=== PATIENT | female | born 1965 | race Caucasian/White ===

== ENCOUNTER → 2020-05-24 08:02 | Outpatient (CLI) | payer OTHER, SELFPAY ==
--- NOTE | ~2020-05-24 | MM_ITS ---
EXAMINATION: MM screening zane [facility] w [place] HISTORY: Screening TECHNIQUE: Craniocaudal and mediolateral oblique 3-D tomosynthesis images were obtained and synthetic 2-D images were generated. CAD analysis was submitted and interpreted. COMPARISON: No prior mammogram is available for comparison at this institution. BREAST PARENCHYMAL COMPOSITION: There are scattered areas of fibroglandular density. FINDINGS: There is no evidence of suspicious mass, calcification, or architectural distortion to sugg est malignancy in either breast. There has been no suspicious interval change. IMPRESSION: 1. No mammographic evidence of malignancy. 2. Recommend routine screening mammography in one year. BI-RADS Category 1: Negative Reviewed, dictated and finalized at location A. OR PRODUCT DESIGNER
== END ==
PROVIDERS: PCP Internal Medicine; Visit Provider Obstetrics & Gynecology
DX: Z12.31 Encounter for screening mammogram for malignant neoplasm of breast (principal)
CPT/HCPCS: 77063; 77067

== ENCOUNTER 2021-12-02 07:45 | Outpatient (CLI) | payer OTHER, SELFPAY ==
--- NOTE | ~2021-12-02 | XR_ITS ---
XR shoulder LT min 2V DATE: 12/02/2021 08:04 INDICATION: Left shoulder pain TECHNIQUE: 4 views COMPARISON: None FINDINGS: Status post anterior cervical spine surgical fusion. Osteopenia. No fracture or dislocation, periosteal reaction or bone destruction of the left shoulder. Normal alig nment and preservation of joint spaces at the acromioclavicular and glenohumeral joints of the left s houlder. No abnormal left shoulder soft tissue calcification. IMPRESSION: Negative left shoulder Status post anterior cervical spine surgical fusion Reviewed, dictated and finalized at location B.
== END 2021-12-02 07:46 ==
LOC: MICIMG 07:46
PROVIDERS: PCP Internal Medicine; Visit Provider Internal Medicine
DX: M25.512 Pain in left shoulder (principal); Z98.1 Arthrodesis status
CPT/HCPCS: 73030

== ENCOUNTER 2023-09-17 03:55 | Day surgery (SDC) | payer BC, SELFPAY ==
[2023-08-22 15:53] VITALS: BMI 30.2
--- NOTE | 2023-09-14 12:14 | SUR.PREOP ---
Patient called regarding upcoming procedure. Reviewed preop instructions, appointment times, and procedure prep.
[2023-09-17 07:50] VITALS: BP 96/66; PULSE 95; RESP 18; TEMP 36.1; O2SAT 97
[2023-09-17] MEDS: LACTATED RINGERS 1,000 ML 150 ML IV CONT (08:05)
[2023-09-17 08:07] LABS: Glucose Point of Care 93 mg/dl (65-105)
--- NOTE | 2023-09-17 08:08 | WPDANESEPPF ---
Anes - Initial Pre Proc Eval Procedure: Operation Date: 09/17/23 09:00 Proposed Procedures p Screening Colonoscopy - Berry Rojas MD Date/Time: 09/17/23 08:08 Surgeon: Berry Rojas MD Pre Op Diagnosis: neoplasm screening Patient Data Age: 58 Gender: F Height: 1.73 m Weight: 88.4 kg Last Vital Signs Temp 36.1 C L 09/17/23 07:50 Pulse 95 09/17/23 07:50 Resp 18 09/17/23 07:50 BP 96/66 L 09/17/23 07:50 Pulse Ox 97 09/17/23 07:50 O2 Del Method Room Air 09/17/23 07:50 Allergies Allergy/AdvReac Type Severity Reaction Status Date / Time No Known Allergies Allergy Verified 09/17/23 07:44 Home Medications Medication Instructions Recorded Confirmed Type calcium carbonate 500 mg calcium 500 mg PO DAILY 12/07/20 08/22/23 History (1,250 mg) tablet (Calcium 500) omega 6-ahy-gmb-fish oil 1,000 mg 3 cap PO DAILY 12/07/20 08/22/23 History (120 mg-180 mg) capsule (Fish Oil) tramadol 50 mg tablet 50 mg PO Q4H PRN pain #180 tabs 01/12/23 08/22/23 Rx tirzepatide 15 mg/0.5 mL 15 mg (0.5 mL) subcut WEEKLY #2 mL 05/28/23 08/22/23 Rx subcutaneous pen injector (Mounjaro) valsartan 320 See Rx Instructions .Route 06/07/23 08/22/23 Rx mg-hydrochlorothiazide 12.5 mg .COMPLEX #90 tabs tablet levothyroxine 88 mcg tablet See Rx Instructions .Route 08/30/23 Rx .COMPLEX #90 tabs ibuprofen 800 mg tablet 800 mg PO TID PRN pain #90 tabs 08/31/23 Rx pravastatin 80 mg tablet See Rx Instructions .Route 08/31/23 Rx .COMPLEX #90 tabs Laboratory Tests 09/17/23 08:02 POC Capillary Glucose 93 mg/dl (65-105) Patient hx anesthesia problems: none Family hx anesthesia problems: none Results Review: All pre-operative results and documents have been reviewed as part of the pre-operative evaluation. [facility] Past Medical History Medical History (Updated 09/17/23 @ 08:08 by Eliezer Arroyo MD) BMI 36.0-36.9,adult COVID-19 Hypothyroidism Nicotine abuse Screening mammogram, encounter for Type II diabetes mellitus Surgical History Surgical History History of abdominal hysterectomy (~2002) laparoscopic abdominal hysterectomy--abnormal uterine bleeding History of appendectomy History of (11/23/90) History of cervical discectomy (~05/2015) History of orthopedic surgery (~05/2016) neck fusion Social History Social History Smoking packs per day: 0.5 Smoking cigarettes per day: 10.0 Years smoked: 40 Smoking pack-years: 20.00 Smoking status: Current every day smoker Tobacco type: cigarettes Second hand tobacco smoke exposure: Yes Alcohol intake: current Drinks per week: 5 Substance use: never Substance use type: does not use Lack of Transportation: No Lack of Food: Never True Current Housing: I Have Housing Concerned About Future Housing: No Difficulty Paying Gas/Electric Bills: No Difficulty Paying for Meds: No Currently Unemployed: No Education: Associate Degree Difficulty w/ Childcare or Family Care: No Living arrangements: with family Additional living arrangements comments: Occupation/Education: occupation 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
--- NOTE | 2023-09-17 08:39 | PM.HPGS ---
History of Present Illness History of Present Illness Consent: Risks, benefits, and alternatives have been discussed and questions answered. Patient agrees to proceed with procedure. Chief complaint: neoplasm screening Narrative: Maye Riley is a 58 year old female here for first screening colonoscopy Review of Systems Constitutional: Constitutional: Denies headache(s) and Denies weakness Eyes: Eyes: Denies blurry vision ENT: Reports Normal hearing present, Denies headache(s) and Denies neck pain Cardiovascular: Cardiovascular: Denies chest pain and Denies dyspnea Respiratory: Respiratory: Denies dyspnea Gastrointestinal: Gastrointestinal: Reports no additional gastrointestinal complaints Genitourinary: Genitourinary: Denies dysuria Musculoskeletal: Musculoskeletal: Denies neck pain Integumentary/Breasts: Skin/Breast: Denies dry skin Neurologic: Reports Normal hearing present, Denies headache(s) and Denies weakness Psychiatric: Psychiatric: Denies anxiety Endocrine: Endocrine: Denies change in body appearance Hematologic/Lymphatic: Hematologic/Lymphatic: Denies easy bleeding Allergic/Immunologic: Allergic/Immunologic: Denies urticaria PMFSH Past Medical History Medical History (Updated 09/17/23 @ 08:08 by Eliezer Arroyo MD) BMI 36.0-36.9,adult COVID-19 Hypothyroidism Nicotine abuse Screening mammogram, encounter for Type II diabetes mellitus Surgical History Surgical History History of abdominal hysterectomy (~2002) laparoscopic abdominal hysterectomy--abnormal uterine bleeding History of appendectomy History of (11/23/90) History of cervical discectomy (~05/2015) History of orthopedic surgery (~05/2016) neck fusion Social History Social History Smoking packs per day: 0.5 Smoking cigarettes per day: 10.0 Years smoked: 40 Smoking pack-years: 20.00 Smoking status: Current every day smoker Tobacco type: cigarettes Second hand tobacco smoke exposure: Yes Alcohol intake: current Drinks per week: 5 Substance use: never Substance use type: does not use Lack of Transportation: No Lack of Food: Never True Current Housing: I Have Housing Concerned About Future Housing: No Difficulty Paying Gas/Electric Bills: No Difficulty Paying for Meds: No Currently Unemployed: No Education: Associate Degree Difficulty w/ Childcare or Family Care: No Living arrangements: with family Additional living arrangements comments: Occupation/Education: occupation 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 Gender identity (if verbalized by the patient): Female Sexual Orientation (if Verbalized by the Patient): Straight or Heterosexual Spiritual care concerns: No Meds Home Medications and Allergies Home Medications Medication Instructions Recorded Confirmed Type calcium carbonate 500 mg calcium 500 mg PO DAILY 12/07/20 08/22/23 History (1,250 mg) tablet (Calcium 500) omega 6-stm-lbw-fish oil 1,000 mg 3 cap PO DAILY 12/07/20 08/22/23 History (120 mg-180 mg) capsule (Fish Oil) tramadol 50 mg tablet 50 mg PO Q4H PRN pain #180 tabs 01/12/23 08/22/23 Rx tirzepatide 15 mg/0.5 mL 15 mg (0.5 mL) subcut WEEKLY #2 mL 05/28/23 08/22/23 Rx subcutaneous pen injector (Asaunjake) valsartan 320 See Rx Instructions .Route 06/07/23 08/22/23 Rx mg-hydrochlorothiazide 12.5 mg .COMPLEX #90 tabs tablet levothyroxine 88 mcg tablet See Rx Instructions .Route 08/30/23 Rx .COMPLEX #90 tabs ibuprofen 800 mg tablet 800 mg PO TID PRN pain #90 tabs 08/31/23 Rx pravastatin 80 mg tablet See Rx Instructions .Route 08/31/23 Rx .COMPLEX #90 tabs Allergies Allergy/AdvReac Type Severity Reaction Status Date / Time No Known Allergies Allergy Verified 09/17/23 07:44 Vital Signs Vital Signs - 24 hr
[2023-09-17 08:58] VITALS: BP 73/48; PULSE 81; RESP 20; O2SAT 98
[2023-09-17 09:08] VITALS: BP 79/46; PULSE 81; RESP 30; O2SAT 97
[2023-09-17 09:18] VITALS: BP 78/47; PULSE 71; RESP 18; O2SAT 100
[2023-09-17 09:49] VITALS: BP 90/59
== END 2023-09-17 09:50 | disposition home or self-care (01) ==
PROVIDERS: PCP Nurse Practitioner; Visit Provider Internal Medicine Gastroenterology
PROC: 0DJD8ZZ Inspection of Lower Intestinal Tract, Via Natural or Artificial Opening Endoscopic (ICD-10-PCS; CPT 45378; principal; 2023-09-17 09:00)
DX: Z12.11 Encounter for screening for malignant neoplasm of colon (principal); D12.4 Benign neoplasm of descending colon; K64.8 Other hemorrhoids; E03.9 Hypothyroidism, unspecified; E11.9 Type 2 diabetes mellitus without complications; F17.210 Nicotine dependence, cigarettes, uncomplicated; Z79.891 Long term (current) use of opiate analgesic; Z98.890 Other specified postprocedural states; Z98.1 Arthrodesis status
CPT/HCPCS: 45385; 82948; 88305; J2704; J7120

== ENCOUNTER 2025-01-02 17:49 | Emergency (ER) | payer OTHER, BC, SELFPAY ==
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
[2025-01-02 17:50] VITALS: BP 140/91; PULSE 104; RESP 18; TEMP 36.9; O2SAT 99
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
[2025-01-02 18:29] LABS: Basophils Percent Auto 0.2 % (0.2-1.2); Eosinophils Percent Auto 0.3 % (0-4.4); Hematocrit 39.4 % (37.0-47.0); Hemoglobin 13.1 g/dL (12.0-15.0); Immature Granulocyte Absolute 0.15 K/mm3 (0.00-0.031); Immature Granulocyte Percent A 1.3 % (0-0.5); Lymphocytes Absolute Auto 2.88 K/mm3 (0.9-3.2); Lymphocytes Percent Auto 25.7 % (18.3-44.2); Mean Corpuscular HGB Conc 33.2 g/dl (32-36); Mean Corpuscular Hemoglobin 30.5 pg (26-34); Mean Corpuscular Volume 91.8 fl (80-100); Mean Platelet Volume 9.4 fl (7.4-10.4); Monocytes Absolute Auto 0.8 K/mm3 (0.1-0.6); Monocytes Percent Auto 7.2 % (2.6-8.5); Neutrophils Absolute Auto 7.3 K/mm3 (1.3-6.7); Neutrophils Percent Auto 65.3 % (45.5-73.1); Platelet Count Result 370 k/mm3 (150-375); Red Blood Count 4.29 M/mm3 (4.2-5.4); Red Cell Distribution Width 12.5 % (11.5-14.5); White Blood Count 11.2 K/mm3 (4.5-10.0)
[2025-01-02 18:40] LABS: Prothrombin Time 13.2 Seconds (11.1-14.7)
[2025-01-02 18:41] LABS: Partial Thromboplastin Time 23.7 Seconds (22.3-36.8)
[2025-01-02 18:42] LABS: Alanine Aminotransferase 24 U/L (6-35); Albumin Level 4.4 g/dL (3.5-5.1); Alkaline Phosphatase 55 U/L (38-126); Anion Gap 10 mmol/L (4-12); Aspartate Amino Transferase 31 U/L (14-36); Bilirubin,Total 0.4 mg/dL (0.2-1.3); Blood Urea Nitrogen 13 mg/dL (7-17); Calcium 9.6 mg/dL (8.4-10.2); Carbon Dioxide 21 mmol/L (22-30); Chloride 104 mmol/L (98-107); Estimated CRCL calculation 85 ml/min; Estimated Glomerular Filt Rate > 60; Glucose 117 mg/dL (65-110); Potassium 3.6 mmol/L (3.4-5.0); Sodium 135 mmol/L (137-145)
[2025-01-02] MEDS: ONDANSETRON INJ 4 MG/2 ML VIAL IV PUSH (18:42)
[2025-01-02] MEDS: MORPHINE SULFATE (*CRX) 4 MG/ML INJ IV PUSH (18:42)
--- OUTSIDE RECORDS SUMMARY | 2025-01-02 19:40 | XMS_ITS | Clinical Summary ---
Author Organization [facility] Address [address] [place] [id number] Phone Care Team Providers Care Office Equipment Technician Name Role Phone Gerard Vale MD Primary Care Provider [phone] Allergies No known active allergies Medications LOSARTAN POTASSIUM PO Take by mouth. Active LEVOTHYROXINE SODIUM PO Take by mouth. Active POTASSIUM CHLORIDE PO Take by mouth. Active Dapagliflozin-Me tformin HCl ER (XIGDUO XR) 5-1000 MG TABLET SR 24 HR Take by mouth. Active Cetirizine HCl (ZYRTEC PO) Take by mouth. Active RaNITidine HCl (ZANTAC PO) Take by mouth. Active Montelukast Sodium (SINGULAIR PO) Take by mouth. Active [place]-3 Fatty Acids (FISH OIL PO) Take by mouth. Active Social History Tobacco Use Types Packs/Day Years Used Date Smoking Tobacco: Every Day Cigarettes Smokeless Tobacco: Never Alcohol Use Standard Drinks/Week Comments Yes 0 (1 standard drink = 0.6 oz pur e alcohol) Comments No Sex and Gender Information Value Date Recorded Sex Assigned at Not on file Legal Sex Female 7:46 PM CDT Gender Identity Not on file Sexual Orientation Not on file Last Filed Vital Signs Vital Sign Reading Time Taken Comments Blood Pressure 122/86 04/26/2018 10:28 AM CDT Pulse 89 04/26/2018 10:28 AM CDT Temperature 36.7 C (98 F) 04/26/2018 10:28 AM CDT Respiratory Rate 16 04/26/2018 10:28 AM CDT Oxygen Saturation 96% 04/26/2018 10:28 AM CDT Inhaled Oxygen Concentration - - Weight 108.4 kg (239 lb) 04/26/2018 10:28 AM CDT Height - - Body Mass Index - - Plan of Treatment Health Maintenance Due Date Last Done Comments Hepatitis C Virus (HCV) Screening 1967 TdaP Immunization 1967 Hepatitis B Immunization (1 of 3 - 19+ 3-dose series) 1986 Pap Smear 1988 Cervical Cancer Screening (CCS) 1997 HPV/Cotest 1997 Colonoscopy 2012 Colorectal Cancer Screening 2012 Cologuard 2017 Immunochemical Fecal Occult Blood 2017 Mammogram 2017 Pneumococcal Immunization (50+ years) (1 of 1 - PCV) 2017 Zoster Immunization (1 of 2) 2017 Influenza Immunization (#1) 2024 11/0 07/2015, 05/13/2015, 05/14/2013, Additional history exists SARS-COV-2 Immunization ( season) 2024 05/17/2021, 09/28/2020 Respiratory Syncytial Virus (RSV) Immunization (Adult) (1 - 1-dose 75+ series) 2042 Meningococcal Immunization (ACWY) Aged Out No longer eligible based on patient's age to complete this topic Pneumococcal Immunization Combined Aged Out No longer eligible based on patient's age to complete this topic Rotavirus Immunization Aged Out No lo nger eligible based on patient's age to complete this topic [place] [address] [place] [address] Care Teams Office Equipment Technician Relationship Specialty Start Date End Date Gerard Vale MD PCP - General Internal Medicine 04/26/18
--- OUTSIDE RECORDS SUMMARY | 2025-01-02 19:40 | XMS_ITS | Encounter Summary ---
Author Organization [facility] Address [address] [facility] [address] [place] [address] Phone Care Team Providers Care Bootmaker Hand Name Role Phone Jose Foote MD Unavailable [phone] Rex Parra NP Primary Care Provider [phone] Shawn Moncada MD Unavailable [phone] Irma Covarrubias MD Unavailable [phone] Ethan Isidro DO Unavailable [phone] Encounter Details Date Type Department Care Team (Late st Contact Info) Description 01/01/2025 9:45 AM CDT Office Visit [facility] Surgery [address] [facility] Advanced Medicine 6th [place] [address] [place] [address] Sissy Stovall MD [address] [facility] [phone] [place] [address] Ductal carcinoma in situ (DCIS) of right breast (Primary Dx) Social History Tobacco Use Types Packs/Day Years Used Date Smoking Tobacco: Former Cigarettes 0.5 43.3 1 982 - 11/13/2024 Passive Smoke Exposure: Never Smokeless Tobacco: Never AUDIT-C Answer Date Recorded Q1: How often do you have a drink containing alc ohol? 2-4 times a month 12/12/2024 Q2: How many drinks containi ng alcohol do you have on a typical day when you are drinking? 3 or 4 12/12/2024 Q3: How often do you have si x or more drinks on one occasion? Never 12/12/2024 Personal Safety Answer Date Recorded Have you ever been in or are you currently in a harmful physical or emotional relationship or is someone making you feel afraid or unsafe? 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 She is approximately three weeks post-operative following the removal of expanders and placement ofbreast implants. She has developed hives on her side, described as bumps, and has an upcoming appointment with her enamel drier to address this issue. She has been taking a steroid, which has helped reduce the hives. The surgical site is healing, with some bruising and dry skin noted. She has not smoked since the surgery, which she believes has positively impacted her healing process. Physical Examination: Physical Exam SKIN: Hives present on the side. Excision site healing well. Assessment/Plan: She is healing well. The patient is a good candidate for bilateral breast revision, bilateral implant exchange with bigger size, bilateral autologous fat grafting to the breasts. (patient preferred to do the liposuction for that from the back/ sides of the breasts). We tried to schedule that at least for months from today to allow the mastectomy skin enough time of healing. Patient have stopped smoking in very excited to continue that. Assessment & Plan Post-surgical breast reconstruction Healing well with normal excision site and expected bruising. Smoking cessation improved healing. - Schedule revision surgery for implant size increase and possible liposuction and fat grafting in 3-4 months. - Advise gentle cleansing with soap and water, pat dry, and apply Vaseline to dry areas. - Encourage continued smoking cessation to aid healing. Hives Intermittent hives possibly due to allergic reaction. Steroids effectively reducing hives. - Continue steroid treatment as needed for hives. - Follow up with enamel drier on Sunday for further evaluation. I have reviewed and edited the entirety of the note to reflect my history, exam, and decision making. Cheryl Stovall MD, PhD, [facility] doctor of naprapathic medicine Division of Plastic & Reconstructive Surgery [facility] in [facility] documented in this encounter Plan of Treatment Not on file documented as of this encounter Visit Diagnoses Diagnosis Ductal carcinoma in situ (DCIS) of right breast- Primary documented in this encounter Care Teams Bootmaker Hand Relationship Specialty Start Date End Date Rex Parra NP [address] [facility] 1 [facility] 1 [place] [address] PCP - General Nurse Practitioner 05/30/24 Jose Foote MD [address] [place] [address] Referring Physician Obstetrics and Gynecology 05/13/24 Shawn Moncada MD [address] [facility] 330 [place] [address] Consulting Physician General Surgery 07/09/24 Irma Covarrubias MD [address] [facility] 160 [place], [place] [phone] Radiation Oncologist Radiation Oncology 07/09/24 Ethan Isidro DO [address] [facility] 180 [place], [place] [id number] Medical Oncologist/Hematologis t Hematology and Oncology 07/21/24 documented as of this encounter
--- OUTSIDE RECORDS SUMMARY | 2025-01-02 19:40 | XMS_ITS | Encounter Summary ---
Author Organization [facility] Address [address] [place] [address] Phone Care Team Providers Care Scientific Programmer Name Role Phone Jose Foote MD Unavailable [phone] Rex Parra NP Primary Care Provider [phone] Shawn Moncada MD Unavailable [phone] Irma Covarrubias MD Unavailable [phone] Ethan Isidro DO Unavailable [phone] Encounter Details Date Type Department Care Team (Late st Contact Info) Description 11/19/2024 Results Follow-Up [facility]0 [facility] Floor [address] [place] [address] Nicolette Hebert MD PhD [address] [facility] [phone] [place] [address] Surgical pathology Social History Tobacco Use Types Packs/Day Years Used Date Smoking Tobacco: Every Day Cigarettes 0.5 43.4 Started: 1979 Smokeless Tobacco: Never AUDIT-C Answer Date Recorded Q1: How often do you have a drink containing alc ohol? 2-3 times a week 11/14/2024 Q2: How many drinks containi ng alcohol do you have on a typical day when you are drinking? 1 or 2 11/14/2024 Q3: How often do you have si x or more drinks on one occasion? Never 11/14/2024 Personal Safety Answer Date Recorded Have you ever been in or are you currently in a harmful physical or emotional relationship or is someone making you feel afraid or unsafe? 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 Gender Identity Not on file Sexual Orientation Not on file Occupation Industry Job Start Date Job End Date [employer] Not on file Not on file Not on file documented as of this encounter Plan of Treatment Not on file documented as of this encounter Visit Diagnoses Not on filedocumented in this encounter Care Teams Scientific Programmer Relationship Specialty Start Date End Date Rex Parra, ANGELICA [address] [place] [address] PCP - General Nurse Practitioner 05/30/24 Jose Foote MD [address] [place], [place] [phone] Referring Physician Obstetrics and Gynecology 05/13/24 Shawn Moncada MD [address] [facility] 330 [place] [address] Consulting Physician General Surgery 07/09/24 Irma Covarrubias MD [address] [facility] 160 [place], [place] [phone] Radiation Oncologist Radiation Oncology 07/09/24 Ethan Isidro DO [address] [facility] 180 [place], [place] [phone] Medical Oncologist/Hematologis t Hematology and Oncology 07/21/24 documented as of this encounter
--- OUTSIDE RECORDS SUMMARY | 2025-01-02 19:41 | XMS_ITS | Encounter Summary ---
Author Organization [facility] Healthcare Address [address] [place] [address] Care Team Providers Care Bonbon Cream Warmer Name Role Phone Jose Fotoe MD Unavailable [phone] Rex Parra NP Primary Care Provider [phone] Shawn Moncada MD Unavailable [phone] Irma Covarrubias MD Unavailable [phone] Ethan Isidro DO Unavailable [phone] Encounter Details Date Type Department Care Team (Late st Contact Info) Description 08/22/[address] [facility] Surgeon 1 [place] [address] Brooklynn Newman Social History Tobacco Use Types Packs/Day Years Used Date Smoking Tobacco: Every Day Cigarettes 0.5 43.4 Started: 1979 Smokeless Tobacco: Never AUDIT-C Answer Date Recorded Q1: How often do you have a drink containing alc ohol? 2-4 times a month 08/04/2024 Q2: How many drinks containi ng alcohol do you have on a typical day when you are drinking? 1 or 2 08/04/2024 Q3: How often do you have si x or more drinks on one occasion? 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 file Not on file Not on file documented as of this encounter Plan of Treatment Not on file documented as of this encounter Visit Diagnoses Not on filedocumented in this encounter Care Teams Bonbon Cream Warmer Relationship Specialty Start Date End Date Rex Parra NP [address] [facility] [address] [place] [address] PCP - General Nurse Practitioner 05/30/24 Jose Foote MD [address] [place] [address] Referring Physician Obstetrics and Gynecology 05/13/24 Shawn Moncada MD [address] [facility] 330 [place] [address] Consulting Physician General Surgery 07/09/24 Irma Covarrubias MD [address] [facility] 160 [place] [address] Radiation Oncologist Radiation Oncology 07/09/24 Ethan Isidro DO [address] [facility] 180 [place] [address] Medical Oncologist/Hematologis t Hematology and Oncology 07/21/24 documented as of this encounter
--- OUTSIDE RECORDS SUMMARY | 2025-01-02 19:41 | XMS_ITS ---
Author Organization [facility] [place] ([address]) Address [address] [place] [address] Care Team Providers Care Diagram Clerk Name Role Phone Stefano Andersen Primary Care Provider UnavailFox Trejo Unavailable [phone] Gerard Vale Unavailable Unavailable Williams Duong Unavailable [phone] REASON FOR VISIT Hives follow-up Social History Sex Assigned At : Social History Observation Description Sex Assigned At Female Encounters Encounter Location Date Provider Diagnosis [facility] [address] [place] [address] 12/03/2023 Williams Duong Plan Of Treatment Next Appt Details Provider Name:Jailyn sterling, 01/05/2025 07:30:00 AM, [address] [facility] [address], [place], [address], Progress Notes * Maye RILEY ADOB:1964 (59 yo F)Acc No.[id number]:12/03/2023 Progress Notes Patient: Nasreen Maye ROHT Provider: Anne Duong PA-C :1965 A ge:58 Y S ex:Female Date:12/03/2023 Address:[address] [place], [place] [address] Pcp:Stefano Ganesh Subjective: * Chief Complaints: * 1 . Hives follow-up. * Medical History: Objective: * Vitals: Assessment: Plan: * Treatment: * Billing Information: * Visit Code: * Procedure Codes: * Electronic signature of Sherman Duong PA-C on 01/02/2025 at 07:40 PM CDT Sign off status: Pending * Provider: Anne Duong PA-C Date: 0 12/03/2023 Generated for Elmer leroy/Leidy/Williams on: 0 01/02/2025 07:40 PM CDT
--- OUTSIDE RECORDS SUMMARY | 2025-01-02 19:41 | XMS_ITS | Patient Health Record ---
Author Organization [facility] [place] ([address]) Address [address] [place] [address] Care Team Providers Care Steam Service Inspector Name Role Phone Stefano Andersen Primary Care Provider UnavailFox Trejo Unavailable [phone] Gerard Vale Unavailable Unavailable Williams Duong Unavailable [phone] ZZ-Ilene, Provider Unavailable Unavailab le Allergies No Known Allergies Reason For Referral No Information Medications Medication SIG (Take, Route, Frequency, Duration) Notes Start Date End Date Status Montelukast Sodium 10 MG Take 1 tablet by mouth once daily for 30 Active PEPCID 20 mg 1 tab(s) orally 2 times a day for 30 days Active CETIRIZINE 10 mg 1 tab(s) orally twice a day for 30 days Active Levothyroxine Sodium 88 MCG 1 tab(s) orally once a day Active Mounjaro 15 MG/0.5 ML DIRECTED SUBCUTANEOUSLY ONCE A WEEK *Please review and pick correct strength-formula tion from Medispan options. If intended option is not shown, discontinue and re-order from Quick Search* Active Valsartan 320 MG 1 tab(s) orally once a day Active ZyrTEC Allergy 10 MG 1 tab(s) orally Qday Not-Erick ing Cetirizine HCl 10 MG 1 tab(s) orally BID for 30 days 09/24/2023 Active Pepcid 20 MG 1 tab(s) orally 2 times a day for 30 days 09/24/2023 Active Calcium Acetate 667 MG 3 tab(s) orally 3 times a day Active Pravastatin Sodium 80 MG 1 tab(s) orally once a day Active Vitamin D Active Fish Oil 1000 MG 1 cap(s) orally 3 times a day (with meals) Active Immunizations Vaccine Route Administration Date Status Comme nts Fluzone Quadrivalent Unknown 03/18/2018 Refused FluZone Quadrivalent Unknown 08/11/2023 Administered Po rtal Information NOC Fluzone Quadrivalent Unknown 05/13/2018 Refused NOC Fluzone Quadrivalent Unknown 06/24/2018 Refused NOC Fluzone Quadrivalent Unknown 08/05/2018 Refused NOC Fluzone Quadrivalent Unknown 09/30/2018 Refused Social History Tobacco Use: Social History Observation Description Date Details (start date - stop date) Current Smoker NA - NA Sex Assigned At : Social History Observation Description Sex Assigned At Female Smoking Smart Form: Question Answer Notes Are you a: current smoker How often do you smoking Cigarettes? every day How many cigarettes a day do you smoke? 11-20 Problems Problem Type SNOMED Code ICD Code Onset Dates Problem Status W/U Status Risk Notes Problem Idiopathic urticaria (93004556) Idiopathic urticaria (L50.1) Active confirmed Problem Angioneurotic edema (21846709) Angioneurotic edema, initial encounter (T78.3XXA) Active confirmed Problem Eruption of skin (323036349) Rash and other nonspecific skin eruption (R21) Active confirmed Problem Chronic allergic conjunctivitis (74590652) Other chronic allergic conjunctivitis (H10.45) Active confirmed Problem Essential hypertension (22772225) Essential (primary) hypertension (I10) Active confirmed Problem Allergic rhinitis caused by pollen (disorder) (76337602) Allergic rhinitis due to pollen (J30.1) Active confirmed Problem Allergic rhinitis (78039383) Other allergic rhinitis (J30.89) Active confirmed Problem Uncomplicated mild persistent asthma (988128254) Mild persistent asthma, uncomplicated (J45.30) Active confirmed Problem Uncomplicated moderate persistent asthma (399732177) Moderate persistent asthma, uncomplicated (J45.40) Active confirmed Problem Uncomplicated severe persistent asthma (306169474) Severe persistent asthma, uncomplicated (J45.50) Active confirmed Problem Elevated blood pressure reading without diagnosis of hypertension (286449860) Elevated blood-pressure reading, without diagnosis of hypertension (R03.0) Active confirmed Problem Angioneurotic edema (18425958) Angioneurotic edema, subsequent encounter (T78.3XXD) Active confirmed Problem Allergic rhinitis caused by animal hair and dander (001259368535756) Allergic rhinitis due to animal (cat) (dog) hair and dander (J30.81) Active confirmed Problem Chronic rhinitis (68981262) Chronic rhinitis (J31.0) Active confirmed Problem Hypertrophy of nasal turbinates (05108308) Hypertrophy of nasal turbinates (J34.3) Active confirmed Problem Angioneurotic edema (37638402) Angioneurotic edema, subsequent encounter (T78.3XXD) Active confirmed Problem Essential hypertension (37039305) Essential (primary) hypertension (I10) Active confirmed Vital Signs Oximetry 100 % 03/19/2024 Blood pressure diastolic 68 mm Hg 03/19/2024 Height 68 in 03/19/2024 Blood pressure systolic 106 mm Hg 03/19/2024 Weight 194.8 lbs 03/19/2024 BMI 29.62 kg/m2 03/19/2024 Encounters Encounter Location Date Provider Diagnosis [address] [address] 01/05/2024 Provider ZZ-Ilene Idiopathic urticaria L50.[address] [address] 03/19/2024 Williams Duong Idiopathic urticaria L50.1 ; Chronic rhinitis J31.0 ; Hypertrophy of nasal turbinates J34.3 and Essential (primary) hypertension I10 [address] [place] [address] 02/04/2024 Fox Alejandra Idiopathic urticaria L50.[address] [address] 03/13/2024 Fox Alejandra [address] [address] 12/22/2024 Fox Alejandra Assessments Encounter Date Diagnosis (ICD Code) Assessment Notes Treatment Notes Treatment Clinical Notes Section Notes 01/05/2024 Idiopathic urticaria (ICD-10 - L50.1) 02/04/2024 Idiopathic urticaria (ICD-10 - L50.1) 03/19/2024 Idiopathic urticaria (ICD-10 - L50.1) 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 Her last dose was in 2019. Until recently was hive-free until mid-ary when she awoke with diffuse hives. Treated with oral steroids and presumed steroids shot at the time without recurrance. She was more stressed at the time. Otherwise without clear triggers. Currently with few hives in the AM occcuring 1-2 times a month, treating with PRN Zyrtec and Singualir. Contine current regimen Will hold off on daily therapy for now. Consider restarting Xolair. Of note, she does have a history of hypothroidism. Return in 6 months for E&M 03/19/2024 Chronic rhinitis (ICD-10 - J31.0) Previously, reported watery eyes and nasal congestion in the morning relieved by antihistamines and Singulair. Will consider SPT in the future, however, not interested at this time. Continue antihistamines as needed 03/19/2024 Hypertrophy of nasal turbinates (ICD-10 - J34.3) Visible hypertrophy on PE, will consider SPT in the future 03/19/2024 Essential (primary) hypertension (ICD-10 - I10) Normal BP today without signs of urgency or emergency. Continue follow-up with PCP 03/19/2024 Other Plan Of Treatment Next Appt Details Provider Name:Jailyn sterling, 01/05/2025 07:30:00 AM, [address] [facility], [address] [place] [address], [phone], Insurance Providers Payer Name Payer Address Payer Phone Subscriber Number Group Number Insured Name Patient Relationship to Insured Coverage Start Date Coverage End Date [facility] [address] [place] [address] [id number] Maye Riley Self - patient is the insured 2 Medical (General) History Medical History History ICD Code Hypothyroidism, unspecified Essential (primary) hypertension Pure hypercholesterolemia, unspecified Idiopathic urticaria Angioneurotic edema, initial encounter Rash and other nonspecific skin eruption Diabetes insipidus Surgical History Surgery Date(Month/Year) C section 11/23/1990 appendix 08/27/1985 neck disectamy 06/16/2016 neck fusion 06/16/2017 Endoscopy 08/01/2023
--- OUTSIDE RECORDS SUMMARY | 2025-01-02 19:41 | XMS_ITS | Referral Summary ---
Author Organization [facility] Address [address] [place] [id number] Care Team Providers Care Ceo [employer] Founder Name Role Phone Jose Foote MD Unavailable [phone] Rex Parra NP Primary Care Provider [phone] Shawn Moncada MD Unavailable [phone] Irma Covarrubias MD Unavailable [phone] Ethan Isidro DO Unavailable [phone] Encounters Date Type Department Care Team Description 01/01/2025 9:45 AM CDT Office Visit [facility] Surgery [address] [place] [address] Advanced Medicine 6th [place] [address] Sissy Stovall MD Ductal carcinoma in situ (DCIS) of right breast (Primary Dx) 12/25/2024 Documentation [facility] Surgery [address] [facility] Floor 8 [place] [address] Katalina Blackmon RN 12/17/2024 11:00 AM CDT Office Visit [facility] Surgery [address] [place] [address] [facility] 6th [place] [address] Ductal carcinoma in situ (DCIS) of right breast (Primary Dx) 12/12/2024 11:40 AM CDT - 12/12/2024 2:55 PM CDT Surgery [facility] [address] [place] [address] BadSissy garcía MD EXCHANGE IMPLANT BREAST 12/12/2024 9:55 AM CDT Anesthesia Event [facility] Operating Room [place] [facility] ([facility]) [address] [place] [address] Ayden Johnson MD Mallette, Allison Anne, NP 12/12/2024 8:45 AM CDT - 12/12/2024 1:24 PM CDT Hospital Encounter [facility] [address] [place] [address] Sissy Stovall MD Ductal carcinoma in situ (DCIS) of right breast Discharge Disposition: Discharge to home or self care 12/08/2024 1:30 PM CDT Office Visit [facility] Surgery [address] [place] [address] [facility] 6th [place] [address] Sissy Stovall MD Ductal carcinoma in situ (DCIS) of right breast (Primary Dx) 12/08/2024 Telephone [facility] Surgery [address] [place] [address] 6th [place] [address] Abdirizak Darling CMA problem 12/05/2024 8:30 AM CDT Office Visit [facility] Surgery [address] [place] [address] [facility] 6th [place] [address] Sissy Stovall MD Ductal carcinoma in situ (DCIS) of right breast (Primary Dx) 11/27/2024 2:00 PM CDT Office Visit [facility] Surgery [address] [place] [address] [facility] 6th [place] [address] Sissy Stovall MD Ductal carcinoma in situ (DCIS) of right breast (Primary Dx) 11/27/2024 3:15 PM CDT Office Visit [facility] Surgery [facility] Floor 8 [place] [address] Nicolette Hebert MD PhD Encounter for postoperative wound check (Primary Dx); History of bilateral mastectomy; Hx of lymph node excision 11/21/2024 2:30 PM CDT Office Visit [facility] Surgery [address] [facility] Advanced Medicine 6th [place] [address] [place] [address] Danielle Matias NP Ductal carcinoma in situ (DCIS) of right breast (Primary Dx) 11/19/2024 Results Follow-Up [facility] Surgery 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) Discharge Disposition: Discharge to home or self care 11/14/2024 1:20 PM CDT - 11/14/2024 6:20 PM CDT Surgery [facility] Operating [facility]) [address] [place] [address] Nicolette Hebert MD PhD MASTECTOMY - SKIN SPARING 11/14/2024 2:10 PM CDT Anesthesia Event [facility] Operating [facility] [address] [place] [address] Connie Plascencia MD Gangloff, Kerry Marie, NP 10/17/2024 Orders Only [facility] Surgery [address] [place] [address] 8 [place] [phone] Nicolette Hebert MD PhD 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) 10/16/2024 Telephone [facility] Surgery [facility] [address] [place] [phone] Nicolette Hebert MD PhD 10/08/2024 Telephone [facility] Oncology [address] [place] [address] [place] [phone] Serenity Crowder, VENEER PATCHER from Last 3 Months Allergies Active Allergy Reactions Criticality Noted Date Comments Adhesive Rash Medium 12/12/2024 Silk tape Chlorhexidine Itching Medium 11/14/2024 Medications pravastatin (PRAVACHOL) 80 mg tabletIndications :hyperlipidemia Take 1 tablet (80 mg total) by mouth every morning Active Mounjaro 15 mg/0.5 mL pen injectorIndicatio ns:type 2 diabetes mellitus Inject 0.5 mL (15 mg total) under the skin once a week Takes on Sundays 024 Active valsartan (DIOVAN) 320 mg tabletIndications :hypertension Take 1 tablet (320 mg total) by mouth every morning Active omega 5-nkb-bwz-fish oil (Fish OiL) 1,000 (120-180) mg capsuleIndication s:supplement Take 1 capsule (1,000 mg total) by mouth every morning Active montelukast (SINGULAIR) 10 mg tabletIndications :Seasonal Allergic Rhinitis,hives Take 1 tablet (10 mg total) by mouth as needed Active levothyroxine (SYNTHROID) 88 mcg tabletIndications :hypothyroidism Take 1 tablet (88 mcg total) by mouth smart grid engineer before breakfast Active famotidine (Pepcid) 20 mg tabletIndications :hives Take 1 tablet (20 mg total) by mouth as needed (hives) 024 Active cholecalciferol (Vitamin D3) 5,000 unit tabletIndications :Prevention of Vitamin D Deficiency Take 1 tablet (5,000 Units total) by mouth every morning Active CALCIUM ORALIndications:s upplement Take 1 tablet by mouth every morning Active MELATONIN ORALIndications:s leep Take 1 tablet by mouth as needed Active docusate sodium (COLACE) 100 mg capsuleIndication s:constipation Take 1 capsule (100 mg total) by mouth 2 (two) times a day for 14 days with a glass of water 28 capsule 025 Active Additional Information Patient taking differently:100 mg oralEvery other day, Morning, with a glass of water, Indications: constipation, Informant: Self, Reported on 12/12/2024 cyclobenzaprine (FLEXERIL) 10 mg tabletIndications :Muscle Spasm Take 1 tablet (10 mg total) by mouth 3 (three) times a day as needed for muscle spasms 20 tablet Active oxyCODONE (ROXICODONE) 5 mg immediate release tabletIndications :Pain Take 1 tablet (5 mg total) by mouth every 4 (four) hours as needed for pain 15 tablet Active ondansetron ODT (ZOFRAN-ODT) 4 mg disintegrating tablet Take 1 tablet (4 mg total) by mouth every 8 (eight) hours as needed for nausea or vomiting 20 tablet Active ibuprofen (ADVIL,MOTRIN) 800 mg tabletIndications :Pain Take 1 tablet (800 mg total) by mouth as needed for pain 024 2024 Discontinued(S top Taking at Discharge) anastrozole (ARIMIDEX) 1 mg tabletIndications :Ductal carcinoma in situ of right breast Take 1 tablet (1 mg total) by mouth daily 30 tablet 1 025 2024 Discontinued loperamide (IMODIUM) 2 mg capsule Take 1 capsule (2 mg total) by mouth as needed for diarrhea 2024 Discontinued traMADoL (ULTRAM) 50 mg tabletIndications :Pain Take 1 tablet (50 mg total) by mouth as needed for pain 2024 Discontinued(S top Taking at Discharge) oxyCODONE (ROXICODONE) 5 mg immediate release tabletIndications :Pain Take 1 tablet (5 mg total) by mouth every 4 (four) hours as needed for pain 20 tablet 2024 Discontinued acetaminophen (TYLENOL) 325 mg tablet Take 2 tablets (650 mg total) by mouth every 6 (six) hours as needed for pain 2024 Discontinued cyclobenzaprine (FLEXERIL) 10 mg tabletIndications :Muscle Spasm Take 1 tablet (10 mg total) by mouth 3 (three) times a day 90 tablet 2024 Discontinued HYDROcodone-aceta minophen (NORCO) 5-325 mg per tabletIndications :Pain Take 1-2 tablets by mouth every 6 (six) hours as needed for pain 20 tablet 025 2024 Discontinued(S top Taking at Discharge) doxycycline 100 mg tabletIndications :Ductal carcinoma in situ (DCIS) of right breast Take 1 tablet (100 mg total) by mouth 2 (two) times a day for 14 days 28 tablet 025 2024 acetaminophen (TYLENOL) 500 mg tablet Take 1 tablet (500 mg total) by mouth every 8 (eight) hours for 7 days 21 tablet 025 2024 doxycycline (VIBRAMYCIN) 100 mg capsuleIndication s:Prophylaxis, Medical Take 1 tablet/capsule (100 mg total) by mouth 2 (two) times a day for 7 days 14 tablet/caps ule 025 2024 Active Problems Problem Noted Date Diagnosed Date History of mastectomy 12/08/2024 Ductal carcinoma in situ of right breast 025 Ductal carcinoma in situ (DCIS) of right breast 07/21/2024 Immunizations Immunization Administration Dates Next Due H1N1 Inj 04/22/2015 Influenza, Quadrivalent, Lena l Culture-based MDCK, Preservative Free, Antibiotic Free, Intramuscular 04/21/2021 Influenza, Quadrivalent, Rec ombinant, Egg Free, Preservative Free, Intramuscular 05/18/2023 Influenza, Quadrivalent, Spl it, Preservative Free, Intramuscular 06/06/2022 Influenza, Trivalent, IM (MDV) 05/24/2016,2012,07/09/2012 Influenza, Trivalent, Preser vative Free, Intramuscular 05/23/2016,05/13/2015 Influenza, Trivalent, Recomb inant, Egg Free, Preservative Free, Antibiotic Free, IM (FLUBLOK) 05/08/2024 Tdap 04/30/2022 Social History Tobacco Use Types Packs/Day Years Used Date Smoking Tobacco: Former Cigarettes 0.5 43.3 1 982 - 11/13/2024 Passive Smoke Exposure: Never Smokeless Tobacco: Never Tobacco Cessation:Counseling Given: Not Answered AUDIT-C Answer Date Recorded Q1: How often [...] on file Legal 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 Gender Identity Not on file Sexual Orientation Not on file Occupation Industry Job Start Date Job End Date Admission Nurse Not on file Not on file Not on file Last Filed Vital Signs Vital Sign Reading Time Taken Comments Blood Pressure 117/75 12/12/2024 12:40 PM CDT Pulse 74 12/12/2024 12:40 PM CDT Temperature 36.2 C (97.2 F) 12/12/2024 12:00 PM CDT Respiratory Rate 12 12/12/2024 12:40 PM CDT Oxygen Saturation 100% 12/12/2024 12:40 PM CDT Inhaled Oxygen Concentration - - Weight 80.3 kg (177 lb) 12/12/2024 9:25 AM CDT Height 172.7 cm (5' 8) 12/12/2024 9:25 AM CDT Body Mass Index 26.91 12/12/2024 9:25 AM CDT Plan of Treatment Not on file Medical Devices Implanted Type Area Organizational Effectiveness Director Device Identifier Shelf Expiration Date Model / Serial / Lot [employer] Implant Breast Moderate Plus Profile Smooth Memorygel Boost 320cc Gel [id number] - [id number] - [id number] Implanted:Qty: 1 on 12/12/2024 by Sissy Stovall MD at [facility] Breast Left: Breast [employer] [id number] 08/21/2028 [id number] / [id number] / [employer] Implant Breast Moderate Plus Profile Smooth Memorygel Boost 320cc Gel [id number] - [id number] - [id number] Implanted:Qty: 1 on 12/12/2024 by Sissy Stovall MD at [facility] Breast Right: Breast [employer] [id number] 09/18/2028 [id number] / [id number] / [id number] [employer] Securmark 13cm Rigid End Bioabsorbable Net Top Infantry Assaultman Breast Latex Free Ivthh-Mvytx-8y-1 3 - [id number] Implanted:Qty: 1 on 07/01/2024 by Shawn Moncada MD at [facility] Right: Breast [employer] [id number] 02/26/2025 SMARK-EV RENARD-2S-1 3 / / [id number] Description:Right breast Kevin reotactic for microcals/ top hat placed Explanted Type Area Organizational Effectiveness Director Device Identifier Shelf Expiration Date Model / Serial / Lot [employer] Implant Mammary Natrelle Te Smooth 442n-Uv-53-T With Fourte 485t-Xo-07-T - [id number] - [id number] Implanted:Qt y: 1 on 11/14/2024 by Sissy Stovall MD at [facility] Explanted:Qt y: 1 on 12/12/2024 by Sissy Stovall MD at [facility] Breast Left: Breast [employer] 12/07/2028 133S-FX- 11-T / [id number] / [employer] Implant Mammary Natrelle Te Smooth 798g-Kn-57-T With Fourte 476u-Us-35-T - [id number] - [id number] Implanted:Qt y: 1 on 11/14/2024 by Sissy Stovall MD at [facility] Explanted:Qt y: 1 on 12/12/2024 by Sissy Stovall MD at [facility] Other - see comments Right: Breast [employer] [id number] 05/28/2027 133S-FX- 11-T / [id number] / Procedures Procedure Name Priority Date/Time Associated Diagnosis Comments MYCOBACTERIOLOGY AFB CULTURE AND ACID-FAST STAIN Routine 12/12/2024 11:17 AM CDT MYCOLOGY (FUNGAL) CULTURE Routine 12/12/2024 11:17 AM CDT TISSUE AEROBIC AND ANAEROBIC CULTURE AND GRAM STAIN Routine 12/12/2024 11:17 AM CDT MYCOBACTERIOLOGY AFB CULTURE AND ACID-FAST STAIN Routine 12/12/2024 11:16 AM CDT MYCOLOGY (FUNGAL) CULTURE Routine 12/12/2024 11:16 AM CDT TISSUE AEROBIC AND ANAEROBIC CULTURE AND GRAM STAIN Routine 12/12/2024 11:14 AM CDT ANESTHESIA INTUBATION Routine 12/12/2024 10:12 AM CDT CAPSULOTOMY BREAST 12/12/2024 10:01 AM CDT History of mastectomy, unspecified laterality Special Needs general, supine, 0.25%marcaine+epi, plastic tray, REVISION BREAST 12/12/2024 10:01 AM CDT History of mastectomy, unspecified laterality Special Needs general, supine, 0.25%marcaine+epi, plastic tray, EXCHANGE IMPLANT BREAST 12/13/19 10:01 AM CDT History of mastectomy, unspecified laterality Special Needs general, supine, 0.25%marcaine+epi, plastic tray, POCT MO-B-MWH-GLU-HCT,WB - ISTAT Routine 12/12/2024 9:54 AM CDT SURGICAL PATHOLOGY Routine 11/14/2024 3: 34 PM CDT Ductal carcinoma in situ of right breast SC AN PROCEDURE PLACEHOLDER Routine 11/14/2024 2:34 PM CDT SC AN ELECTIVE ENDOTRACHEAL AIRWAY Routine 11/14/2024 2:34 PM CDT GRAFT SKIN SPLIT THICKNESS 11/14/2024 2:13 PM CDT Ductal carcinoma in situ of right breast Special Needs Blue Dye, Sentimag, [employer] Instruments, MagtraceBadran- general, supine, 0.25%marcaine+ epi, plastic tray, cortiva X2, INSERTION TISSUE LIFE ENRICHMENT SPECIALIST - BREAST 11/14/2024 2:13 PM CDT Ductal carcinoma in situ of right breast Special Needs Blue Dye, [employer]imag, [employer], MagtraceBadran- general, supine, 0.25%marcaine+ epi, plastic tray, cortiva X2, BIOPSY SENTINEL LYMPH NODE 11/14/2024 2:13 PM CDT Ductal carcinoma in situ of right breast Special Needs Blue Dye, Sentimag, [employer], MagtraceBadran- general, supine, 0.25%marcaine+ epi, plastic tray, cortiva X2, MASTECTOMY - SKIN SPARING 11/14/2024 2:13 PM CDT Ductal carcinoma in situ of right breast Special Needs Blue Dye, Sentimag, [employer], MagtraceBadran- general, supine, 0.25%marcaine+ epi, plastic tray, cortiva X2, SC AN PROCEDURE PLACEHOLDER Routine 11/14/2024 1:54 PM CDT SC AN PROCEDURE PLACEHOLDER Routine 11/14/2024 1:53 PM CDT SC AN PROCEDURE PLACEHOLDER Routine 11/14/2024 1:52 PM CDT SC AN PROCEDURE PLACEHOLDER Routine 11/14/2024 1:50 PM CDT SCREENING MAMMOGRAM BILATERAL W JOAO Schedule Routine, Read Routine (OP Routine) 05/30/2024 9:53 AM TEST DESKMAN Screening mammogram, encounter for from Last 3 Months or Most Recently Relevant to Health Maintenance Results * (ABNORMAL) Tissue aerobic and anaerobic culture and gram stain Tissue Breast, left (12/12/2024 11:17 AM CDT) Direct Specimen Exam Stain: No polymorphonuclear leukocytes seen. Rare Gram Positive Cocci Report Final Report: Few Mixed microorganisms. Includes the following: Few Pseudomonas putida group (.) CERNER JUANA Organism PSEUDOMONAS PUTIDA GROUP PERLA ARIAS Organism MIXED MICROORGANISMS. PERLA ARIAS Tissue (Breast, left) 12/12/2024 11:17 AM CDT 12/12/2024 12:59 PM CDT Narrative PERLA ARIAS - 12/20/2024 2:39 PM CDT Left Breast Skin Testing performed by [facility] Microbiology Laboratory ([phone]) Specimens submitted from normally sterile body sites will have all bacterial morphotypes identified. Specimens that contain grossly mixed poncho and/or are from body sites that are not normally sterile will be examined for Staphylococcus aureus, Pseudomonas aeruginosa, beta-hemolytic strep, vancomycin-resistant Enterococcus, Bacteroides, Parabacteroides, Clostridium perfringens and fungus. If any of these are isolated, the organism will be reported. Current interpretive data was last revised on 2019. Organism Antibiotic Method Susceptibility Pseudomonas putida group Cefepime (SUNDAR) (SUNDAR) INTERPRETATION Susceptible Pseudomonas putida group Ciprofloxacin (SUNDAR) (SUNDAR) INTERPRETATION Susceptible Pseudomonas putida group Meropenem (SUNDAR) (SUNDAR) INTERPRETATION Susceptible Pseudomonas putida group Trimethoprim with Sulfamethoxazole (SUNDAR) (SUNDAR) INTERPRETATION Resistant Pseudomonas putida group Ceftazidime (SUNDAR) (SUNDAR) INTERPRETATION Susceptible Sissy Stovall MD LAB MICROBIOLOGY - GENERAL ORDERABLES Final Result [facility] [address] [facility] Department [place] [address] * (ABNORMAL) Tissue aerobic and anaerobic culture and gram stain Tissue Breast, right (12/12/2024 11:14 AM CDT) Direct Specimen Exam Stain: No polymorphonuclear leukocytes seen. Few Gram Negative Bacilli Rare Gram Positive Cocci Slide reviewed and direct smear was updated. This is a corrected report. Edited results phoned to and read back by: Dr. Ethan Gonzalez on 12/13/2024 13:19. Report Final Report: Few Mixed microorganisms. Includes the following: Few Pseudomonas putida group (.) [facility] Organism PSEUDOMONAS PUTIDA GROUP [facility] Organism MIXED MICROORGANISMS. [facility] Tissue (Breast, right) 12/12/2024 11:14 AM CDT 12/12/2024 12:56 PM CDT Narrative PERLA [facility] - 12/20/2024 2:38 PM CDT Right Breast Skin Testing performed by [facility] Microbiology Laboratory ([phone]) Specimens submitted from normally sterile body sites will have all bacterial morphotypes identified. Specimens that contain grossly mixed poncho and/or are from body sites that are not normally sterile will be examined for Staphylococcus aureus, Pseudomonas aeruginosa, beta-hemolytic strep, vancomycin-resistant Enterococcus, Bacteroides, Parabacteroides, Clostridium perfringens and fungus. If any of these are isolated, the organism will be reported. Current interpretive data was last revised on 2019. Organism Antibiotic Method Susceptibility Pseudomonas putida group Cefepime (SUNDAR) (SUNDAR) INTERPRETATION Susceptible Pseudomonas putida group Ciprofloxacin (SUNDAR) (SUNDAR) INTERPRETATION Susceptible Pseudomonas putida group Meropenem (SUNDAR) (SUNDAR) INTERPRETATION Susceptible Pseudomonas putida group Trimethoprim with Sulfamethoxazole (SUNDAR) (SUNDAR) INTERPRETATION Resistant Pseudomonas putida group Ceftazidime (SUNDAR) (SUNDAR) INTERPRETATION Susceptible us Sissy Stovall MD LAB MICROBIOLOGY - GENERAL ORDERABLES Final Result [facility] Department [place] [address] * Airway (12/12/2024 10:12 AM CDT) Narrative Shira Odonnell MD - 12/12/2024 10:12 AM CDT Shira Odonnell MD 12/12/2024 10:12 AM Airway Patient location: OR Urgency: elective Indications for airway management: anesthesia Difficult airway: no Staff: Supervising provider: Ayden Johnson MD Placed by: Resident: Shira Odonnell MD Emergent airway documentation: Risks and benefits discussed: yes Consent obtained: yes Consent given by: patient Airway prep: Preoxygenated: yes Patient position: sniffing Sedation level during airway: GA Final airway details: Final airway type: endotracheal airway Tube type: ETT ETT size: 7.0 mm Technique used for successful ETT placement: video laryngoscopy Insertion site: oral Video blade type: Georges Cormack-Lehane (video): grade I - full view of glottis Placement verified by: auscultation and CO2 detection Airway secured with: silk tape Number of attempts: 1 Ventilation between attempts: BVM Planned trial extubation: yes us Ayden Johnson MD ANESTHESIA ORDERABLES Fi nal Result * POCT OU-D-JDK-GLU-HCT, WB - ISTAT (12/12/2024 9:54 AM CDT) Na POC 137 135 - 145 mmol/L K POC 4.2 3.3 - 4.9 mmol/L [facility] Comment: Interpretive Data This method is not able to assess for hemolysis, which may falsely increase potassium concentrations. If further testing is needed to evaluate this result, consider in-laboratory plasma potassium. Current Interpretive Data was last revised on 2022. Glucose POC i-STAT 83 70 - 199 mg/dL [facility] Hct, POC 41.0 35.6 - 45.5 % [facility] Blood 12/12/2024 9:54 AM CDT 12/12/2024 9:54 AM CDT Sissy Stovall MD LAB POCT ORDERAB LES - DEVICE Final Result [facility] Department [place] [address] * Surgical pathology (11/14/2024 3:34 PM CDT) Tissue (Breast, simple mastectomy) 11/14/2024 3:34 PM CDT Tissue specimen (specimen) (Lymph node, sentinel breast) 11/14/2024 3:52 PM CDT Tissue specimen (specimen) (Lymph node, sentinel breast) 11/14/2024 3:53 PM CDT Tissue specimen (specimen) (Breast, simple mastectomy) 11/14/2024 5:23 PM CDT Narrative PATHOLOGY [facility] - 11/18/2024 9:23 AM CDT EPIC results best viewed via link to PDF [facility] [place] [address] Note to Patients: This report may contain a detailed description of human tissue sent by a health care provider to the laboratory for pathologic evaluation. The content of this report is essential for diagnosis and may provide important critical findings. This information may be unfamiliar to patients to review without a medical professional present. It is advised that the patient review this report in the presence of a health care provider who can answer questions and explain the details. SURGICAL PATHOLOGY REPORT FINAL Patient Name: MAYE RILEY Gender: F : 1965 (Age: 59) Address: [address] [place] [address] Hospital #: [id number] Taken:11/14/2024 Received:11/14/2024 Reported: 11/18/2024 Patient Type: [facility] OP In Bed Service: Surgery Location: [place] [address] Physician(s): Bakari Messina NP Diagnosis: A. Breast, right, simple mastectomy - Ductal carcinoma in situ (DCIS), solid and cribriform type with comedo necrosis - Estimated extent >20 mm, involving 9/16 blocks - Nuclear grade = 2/3 by SBR criteria - Associated calcifications - Surgical margins negative (nearest = 5 mm from inferior) - Pseudoangiomatous stromal hyperplasia (PASH) - See synoptic report B. Lymph node, labeled right axillary sentinel lymph node-blue and hot 1253, excision - Two lymph nodes with no evidence of malignancy (0/2) C. Lymph node, labeled right axillary sentinel lymph node-blue and hot 285, excision - One lymph node with no evidence of malignancy (0/1) D. Breast, left, simple mastectomy - Benign breast tissue with scant ductal elements showing fibrocystic changes - Negative nipple - Margins negative - No evidence of atypia or malignancy jebe/11/17/2024 16:56 By this signature, I attest that the above diagnosis is based upon my personal examination of the slides(and/or other material indicated in the diagnosis). Anton Aguilera M.D. Report Electronically Reviewed and Signed Out By Anton Aguilera M.D. 11/18/2024 09:23:40 Kenia Wolf M.D. 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 Operative procedure: Bilateral skin sparing mastectomy, biopsy right sentinel lymph node with Mag trace/blue dye Specimen(s) Received: A: Right breast-short stitch superior, long stitch superior, long stitch lateral B: Right axillary sentinel lymph node- blue and hot 1253 C: Right axillary sentinel lymph node- blue and hot 285 D: Left breast-short stitch superior, long stitch lateral, double stitch behind Gross Description: Received in four formalin jars labeled with the patient's identifiers. A. Labeled right breast short stitch superior, long stitch lateral -Collected: 1534 on 11/14/2024 -Received: 1622 on 11/14/2024 -Placed in formalin: 1630 on 11/14/2024 -Cold ischemic time: 56 minutes -Formalin fixation time: 19.5 hours -Specimen orientation: Short stitch superior, long stitch lateral -Specimen weight: 809.0 g, multiple separate fragments of fibrofatty tissue weighing 28.1 g. -Specimen Dimensions: Medial to Lateral: 23.7 cm Superior to Inferior: 16.5 cm Anterior to Posterior: 4.8 cm - Skin: Dimensions: Two separate fragments: Inferior fragment measuring 5.5 cm from medial to lateral and 1.7 cm from superior to inferior, superior fragment measuring 1.9 cm from medial to lateral and 1.2 cm from superior to inferior Nipple/areola diameter: No nipple identified Skin lesions: None -Margins inked: Anterior/Superior: Blue Anterior/Inferior: Green Posterior: Black Nipple suture area: Yellow -Sectioned: Medial to lateral -Number of slices: 15 -Nipple/areolar complex centered in slice: 7th from medial -Gross findings: Ill-defined area of induration at 5 o'clock approximately 7 cm from nipple measuring approximately 2.5 x 2.0 x 1.0 cm in slice 5, abutting nearest inferior margin, 2.5 cm from nearest superior margin, and 4 cm from nearest posterior margin. : -Specimen radiographed: Yes -Radiograph findings: Biopsy clip in lower inner breast (5 o'clock approximately 6 cm from nipple, -Specimen photograph: Yes -Diagram: Yes Summary of sections: A1-A2 Slice 5, biopsy site with inferior margin (biopsy clip confirmed to be in A2 via radiograph but unable to be located grossly, tissue fragmented during attempted extraction) A3 Slice 5, inferior to biopsy site additional inferior margin A4 Slice 5, superior to biopsy site A5 Slice 5, additional inferior margin A6 Slice 5, posterior margin closest to biopsy site A7 Slice 5, superior margin closest to biopsy site A8 Slice 4, medial to biopsy site with additional inferior margin A9 Slice 6, lateral to biopsy site A10 Slice 6, additional inferior margin lateral to biopsy site A11 Nipple suture area A12 Slice 3, uninvolved lower inner quadrant A13 Slice 3, random upper inner quadrant A14 Slice 9, random upper outer quadrant A15 Slice 11, random lower outer quadrant A16 Inferior skin fragment closest to biopsy site Jar: 4 B. Labeled right axillary sentinel lymph node-blue and hot 1253 is a 3.5 x 2.8 x 1.3 cm piece of yellow lobular adipose tissue, palpated to reveal two lymph nodes measuring 0.7 x 0.7 x 0.5 cm and 2.5 x 1.5 x 1.0 cm. The larger lymph node is serially sectioned and submitted entirely in B1-B2. The smaller node is submitted whole in B3. Jar 1 (adipose tissue). C. Labeled right axillary sentinel lymph node-blue and hot 285 is a single lymph node measuring 0.4 x 0.4 x 0.3 cm, submitted entirely in C1. Jar 0. D. Labeled left breast-short stitch superior, long stitch lateral, double stitch behind -Collected: 1723 on 11/14/2024 -Received: 1736 on 11/14/2024 -Placed in formalin: 1743 on 11/14/2024 -Cold ischemic time: 20 minutes -Formalin fixation time: 18.5 hours -Specimen orientation: short stitch superior, long stitch lateral, double stitch behind -Specimen weight: 986.0 g -Specimen Dimensions: Medial to Lateral: 23.5 cm Superior to Inferior: 17.0 cm Anterior to Posterior: 5.5 cm - Skin: Dimensions: Two separate fragments: Inferior fragment measuring 4.9 cm from medial to lateral and 1.9 cm from superior to inferior, superior fragment measuring 1.7 cm from medial to lateral and 0.9 cm from superior to inferior Nipple/areola diameter: Not present Skin lesions: None -Margins inked: Anterior/Superior: Blue Anterior/Inferior: Green Posterior: Black Nipple suture area: Yellow -Sectioned: Medial to lateral -Number of slices: 14 -Nipple/areolar complex centered in slice: Sixth from medial -Gross findings: Fibrofatty tissue with no gross lesions identified : -Specimen radiographed: Yes -Radiograph findings: No radiographic lesions identified -Specimen photograph: No -Diagram: No Summary of sections: D1-D2 Random upper outer quadrant D3-D4 Random lower outer quadrant D5-D6 Random lower inner quadrant D7-D8 Random upper inner quadrant D9 Nipple suture area D10 Permit Coordinator section of skin (inferior fragment) Jar: 4 11/15/2024 11:22 Gross Resident:Pako Hernandez M.D. 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 Procedure: Total mastectomy (including nipple-sparing and skin-sparing mastectomy) Specimen laterality: Right Tumor site: Not specified Size (extent) of DCIS: Greatest dimension (using gross & microscopic evaluation): at least > 20 mm Number of blocks with DCIS: 9 Number of blocks examined: 16 Histologic type: Ductal carcinoma in situ Architectural patterns: Cribriform Solid Nuclear grade: Grade 2 (intermediate) Necrosis: Present, central (expansive c omedo necrosis) Margins: All margins negative for DCIS Distance from closest margin: 5 mm Closest margin: Inferior Distance from superior margin: >10 mm Distance from inferior margin: 5 mm Distance from posterior margin: >10 mm Regional lymph nodes: All regional lymph nodes negative for tumor Total number of lymph nodes examined (sentinel and non-sentinel) Exact number: 3 Number of Sargeant Nodes Examined Exact number: 3 Pathologic stage classification (pTNM, AJCC 8th Edition): TNM descriptors: Not applicable Primary tumor (pT): pTis (DCIS): Ductal carcinoma in situ Regional lymph nodes (pN): Modifier: (sn): Only sentinel node(s) evaluated. pN Category: pN0: No regional lymph node metastasis identified pM Category: Distant Site(s) Involved, if applicable: Not applicable Breast Biomarker Testing performed on Previous Case: [id number] Estrogen Receptor (ER): Positive Reva score 8/8 The pathologic stage assigned here should be regarded as provisional, and may change after integration of clinical data not provided with this report. CAP VERSION: Breast DCIS 4.4.0.0 By this signature, I attest that the above diagnosis is based upon my personal examination of the slides(and/or other material). Addenda/Procedures The performance characteristics of some immunohistochemical stains, fluorescence in-situ hybridization tests and immunophenotyping by flow cytometry cited in this report (if any) were determined by the Surgical Pathology and Flow Cytometry Departments at [facility] as part of an ongoing quality assurance coordinator program and in compliance with federally mandated regulations drawn from the Clinical Laboratory Improvement Act of 1988 (CLIA '88). Some of these tests rely on the use of analyte specific reagents and are subject to specific labeling requirements by the US Food and Drug Administration. Such diagnostic tests may only be performed in a facility that is certified by the Department of Health and Human Services as a high complexity laboratory under CLIA '88. The FDA has determined that such clearance or approval is not necessary. This test is used for clinical purposes. It should not be regarded as investigational or for research. Nevertheless, federal rules concerning the medical use of analyte specific reagents require that the following disclaimer be attached to the report: This test was developed and its performance characteristics determined by the Surgical Pathology and Flow Cytometry Departments of [facility]. It has not been cleared or approved by the U. S. Food and Drug Administration. IMAGES AND SCANNED DOCUMENTS, IF INCLUDED, ONLY VIEWABLE IN PDF VERSION OF REPORT Nicolette Hebert MD PhD LAB PATHO LOGY ORDERABLES Final Result PATHOLOGY [facility] 3rd Floor [place], [place] [phone] * SC AN ELECTIVE ENDOTRACHEAL AIRWAY, SC AN PROCEDURE PLACEHOLDER (11/14/2024 2:34 PM CDT) Camila Grayson CRNA - 11/14/2024 2:34 PM CDT Camila Ch CRNA 11/14/2024 2:34 PM Airway Patient location: OR Urgency: elective Indications for airway management: anesthesia Difficult airway: no Staff: Placed by: KNOCKOUT MACHINE OPERATOR: Camila Ch CRNA Emergent airway documentation: Risks and benefits discussed: yes Consent obtained: yes Consent given by: patient Airway prep: Preoxygenated: yes Patient position: sniffing Mask difficulty assessment: 0 - not attempted Sedation level during airway: GA Final airway details: Final airway type: endotracheal airway Tube type: ETT ETT size: 7.0 mm Cuffed: yes Technique used for successful ETT placement: video laryngoscopy Devices/Methods used in placement: stylet Insertion site: oral Blade type: Rupa Video blade type: Georges Blade size: 3 Cormack-Lehane (video): grade I - full view of glottis Cuff volume: 8 mL Cuff inflated with: air ETT to lips: 22 cm Placement verified by: auscultation and CO2 detection Airway secured with: silk tape Number of attempts: 1 Additional comments: Intubation performed atraumatically. Preop dentition unchanged. Result [facility] Connie Plascencia MD ANESTHESIA ORDERABLES Fin al Result * SC AN PROCEDURE PLACEHOLDER (11/14/2024 1:54 PM CDT) Matthew Adams MD - 11/14/2024 1:54 PM CDT Matthew Blair MD 11/14/2024 2:19 PM Peripheral Block Patient location during procedure: pre-op holding Reason for block: post-op pain management per surgeon request Ultrasound image in chart or stored: yes Block type: single shot Laterality: left Block type: PECS I Staff: Supervising provider: Matthew Blair MD Placed by: Resident: Danuta Zimmerman MD Procedure prep: Preprocedure checklist: patient identified, procedure contraindications assessed, site marked, procedure consent, surgical consent, IV checked, risks, benefits and alternatives discussed, monitors and equipment checked and timeout performed Patient position: sitting Procedure performed while patient: sedate with meaningful contact Monitoring: ECG, oximetry and blood pressure Supplemental O2: nasal cannula Prep solution: chlorhexidine/alcohol PPE: provider hat/mask, sterile gloves and sterile probe cover and gel Peripheral nerve block: Technique: ultrasound guided Needle type: insulated, echogenic and short-bevel Needle gauge: 22 G Needle length: 80 mm Injection assessment: injection made incrementally with constant monitoring, local visualized surrounding nerve on ultrasound, negative aspiration for heme, no paresthesias noted, normal resistance to injection and see flowsheet for medication details Assessment: Block success: full evaluation pending Events: patient tolerated procedure well with no complications Connie Plascencia MD ANESTHESIA ORDERABLES Fin al Result * SC AN PROCEDURE PLACEHOLDER (11/14/2024 1:53 PM CDT) Matthew Adams MD - 11/14/2024 1:53 PM CDT Matthew Blair MD 11/14/2024 2:19 PM Peripheral Block Patient location during procedure: pre-op holding Reason for block: post-op pain management per surgeon request Ultrasound image in chart or stored: yes Block type: single shot Laterality: left Block type: PECS II Staff: Supervising provider: Matthew Blair MD Placed by: Resident: Danuta Zimmerman MD Procedure prep: Preprocedure checklist: patient identified, procedure contraindications assessed, site marked, procedure consent, surgical consent, IV checked, risks, benefits and alternatives discussed, monitors and equipment checked and timeout performed Patient position: sitting Procedure performed while patient: sedate with meaningful contact Monitoring: ECG, oximetry and blood pressure Supplemental O2: nasal cannula Prep solution: chlorhexidine/alcohol PPE: provider hat/mask, sterile gloves and sterile probe cover and gel Peripheral nerve block: Technique: ultrasound guided Needle type: insulated, echogenic and short-bevel Needle gauge: 22 G Needle length: 80 mm Injection assessment: injection made incrementally with constant monitoring, local visualized surrounding nerve on ultrasound, negative aspiration for heme, no paresthesias noted, normal resistance to injection and see flowsheet for medication details Assessment: Block success: full evaluation pending Events: patient tolerated procedure well with no complications Connie Plascencia MD ANESTHESIA ORDERABLES Fin al Result * SC AN PROCEDURE PLACEHOLDER (11/14/2024 1:52 PM CDT) Matthew Adams MD - 11/14/2024 1:52 PM CDT Matthew Blair MD 11/14/2024 2:19 PM Peripheral Block Patient location during procedure: pre-op holding Reason for block: post-op pain management per surgeon request Ultrasound image in chart or stored: yes Block type: single shot Laterality: right Block type: PECS I Staff: Supervising provider: Matthew Blair MD Placed by: Resident: Danuta Zimmerman MD Procedure prep: Preprocedure checklist: patient identified, procedure contraindications assessed, site marked, procedure consent, surgical consent, IV checked, risks, benefits and alternatives discussed, monitors and equipment checked and timeout performed Patient position: sitting Procedure performed while patient: sedate with meaningful contact Monitoring: ECG, oximetry and blood pressure Supplemental O2: nasal cannula Prep solution: chlorhexidine/alcohol PPE: provider hat/mask, sterile gloves and sterile probe cover and gel Peripheral nerve block: Technique: ultrasound guided Needle type: insulated, echogenic and short-bevel Needle gauge: 22 G Needle length: 80 mm Injection assessment: injection made incrementally with constant monitoring, local visualized surrounding nerve on ultrasound, negative aspiration for heme, no paresthesias noted, normal resistance to injection and see flowsheet for medication details Assessment: Block success: full evaluation pending Events: patient tolerated procedure well with no complications Result [facility] Connie Plascencia MD ANESTHESIA ORDERABLES Fin al Result * SC AN PROCEDURE PLACEHOLDER (11/14/2024 1:50 PM CDT) Narrative Matthew Blair MD - 11/14/2024 1:50 PM CDT Matthew Blair MD 11/14/2024 2:19 PM Peripheral Block Patient location during procedure: pre-op holding Reason for block: post-op pain management per surgeon request Ultrasound image in chart or stored: yes Block type: single shot Laterality: right Block type: PECS II Staff: Supervising provider: Matthew Blair MD Placed by: Resident: Danuta Zimmerman MD Procedure prep: Preprocedure checklist: patient identified, procedure contraindications assessed, site marked, procedure consent, surgical consent, IV checked, risks, benefits and alternatives discussed, monitors and equipment checked and timeout performed Patient position: sitting Procedure performed while patient: sedate with meaningful contact Monitoring: ECG, oximetry and blood pressure Supplemental O2: nasal cannula Prep solution: chlorhexidine/alcohol PPE: provider hat/mask, sterile gloves and sterile probe cover and gel Peripheral nerve block: Technique: ultrasound guided Needle type: insulated, echogenic and short-bevel Needle gauge: 22 G Needle length: 80 mm Injection assessment: injection made incrementally with constant monitoring, local visualized surrounding nerve on ultrasound, negative aspiration for heme, no paresthesias noted, normal resistance to injection and see flowsheet for medication details Assessment: Block success: full evaluation pending Events: patient tolerated procedure well with no complications Result [facility] Connie Plascencia MD ANESTHESIA ORDERABLES Fin al Result * (ABNORMAL) Screening Mammogram Bilateral W Joao (05/30/2024 9:53 AM TEST DESKMAN) Anatomical Region Laterality Modality Breast Bilateral Mammography Impressions 06/02/2024 9:17 AM TEST DESKMAN BI-RADS ATLAS category (overall): 0 - Incomplete: Needs Additional Imaging Evaluation 1. Indeterminate right breast findings as detailed above. Further evaluation with diagnostic right mammography and possible diagnostic right breast ultrasound is recommended. 2. No mammographic evidence of malignancy in the left breast. Routine screening mammography of the left breast is recommended in 1 year. The patient has been or will be contacted. Narrative 06/02/2024 9:17 AM TEST DESKMAN Screening Mammogram Bilateral W Joao: 05/30/24 The study was acquired using full field digital technology and interpreted from soft copy. 2D digital mammographic views, as well as 3D digital tomosynthesis were performed in the CC and MLO projections. CLINICAL: Screening mammogram, encounter for. No relevant medical history has been documented for this patient. History of breast cancer in Neg Hx. COMPARISONS: 02/15/2023 Breast Imaging Screening Outside Reference 02/02/2022 Breast Imaging Screening Outside Reference BREAST TISSUE: There are scattered areas of fibroglandular density. FINDINGS: There is a focal asymmetry with associated microcalcifications in the lower inner right breast, middle depth. There is no new suspicious finding in the left breast on mammogram. Jose Foote MD IMG MAMMO PROCEDURES Final Result from Last 3 Months or Most Recently Relevant to Health Maintenance Insurance [facility] HOME [address] [facility] Advance Directives For more information, please contact: [phone] Documents on File Type Date Recorded Patient Permit Coordinator Expl anation ADVANCE DIRECTIVE 11/20/2024 6:44 AM LIVING WILL ADVANCE DIRECTIVE 11/20/2024 6:44 AM POWER OF PAPER MAKER-MEDICAL ADVANCE DIRECTIVE 11/14/2024 12:06 PM Phyllis ng Will ADVANCE DIRECTIVE 11/14/2024 12:06 PM Benny r of Logging Equipment Operator-Medical * Full Code (Latest Code Status on File) Date Activated Date Inactivated Comments 11/14/2024 9:26 PM 11/15/2024 6:09 PM Care Teams Ceo & Co Founder Relationship Specialty Start Date End Date Rex Parra NP [address] [facility] [address] [place] [address] PCP - General Nurse Practitioner 05/30/24 Jose Foote MD [address] [place] [address] Referring Physician Obstetrics and Gynecology 05/13/24 Shawn Moncada MD [facility] [address] [place], [place] [id number] Consulting Physician General Surgery 07/09/24 [place] [address] [place] [address] [id number] Radiation Oncologist Radiation Oncology 07/09/24 [place] [address] [place] [id number] Medical Oncologist/Hematologis t Hematology and Oncology 07/21/24
--- OUTSIDE RECORDS SUMMARY | 2025-01-02 19:41 | XMS_ITS | Clinical Summary ---
Author Organization [facility] Address [address] [place] [address] Care Team Providers Care Group Leader Semiconductor Processing Name Role Phone Jose Foote MD Unavailable [phone] Rex Parra NP Primary Care Provider [phone] Shawn Moncada MD Unavailable [phone] Irma Covarrubias MD Unavailable [phone] Ethan Isidro DO Unavailable [phone] Allergies Active Allergy Reactions Criticality Noted Date [...] total) by mouth every morning Active omega 1-che-yww-fish oil (Fish OiL) 1,000 (120-180) mg capsuleIndication s:supplement Take 1 capsule (1,000 mg total) by mouth every morning Active montelukast (SINGULAIR) 10 mg tabletIndications :Seasonal Allergic Rhinitis,hives Take 1 tablet (10 mg total) by mouth as needed Active levothyroxine (SYNTHROID) 88 mcg tabletIndications :hypothyroidism Take 1 tablet (88 mcg total) by mouth specimen collector before breakfast Active famotidine (Pepcid) 20 mg tabletIndications :hives Take 1 tablet (20 mg total) by mouth as needed (hives) Active cholecalciferol (Vitamin D3) 5,000 unit tabletIndications [...] with a glass of water 28 capsule Active Additional Information Patient taking differently:100 mg [...] pain 2024 Discontinued(S top Taking at Discharge) anastrozole [...] needed for pain 20 tablet 025 2024 Discontinued acetaminophen (TYLENOL) 325 mg tablet Take 2 tablets (650 mg total) by mouth every 6 (six) hours as needed for pain 2024 Discontinued cyclobenzaprine (FLEXERIL) 10 mg tabletIndications :Muscle Spasm Take 1 tablet (10 mg total) by mouth 3 (three) times a day 90 tablet 025 2024 Discontinued HYDROcodone-aceta minophen (NORCO) 5-325 mg [...] 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 Encounters Date Type Department Care Team Description 01/01/2025 9:45 AM CDT Office Visit [facility] Surgery [address] [facility] 6th [place] [address] [place] [address] Sissy Stovall MD Ductal carcinoma in situ (DCIS) of right breast (Primary Dx) 12/25/2024 Documentation [facility] Surgery [address] [facility] Floor 8 [place] [phone] Katalina Blackmon RN 12/17/2024 11:00 AM CDT Office Visit [facility] Surgery [address] [place] [address] [facility] 6th [place] [address] Ductal carcinoma in situ (DCIS) of right breast (Primary Dx) 12/12/2024 11:40 AM CDT - 12/12/2024 2:55 PM CDT Surgery [facility] Operating [facility] [address] [place] [address] Sissy Stovall MD EXCHANGE IMPLANT BREAST 12/12/2024 9:55 AM CDT Anesthesia Event [facility] Operating [facility] [address] [place] [address] Ayden Johnson MD Mallette, Allison Anne, NP 12/12/2024 8:45 AM CDT - 12/12/2024 1:24 PM CDT Hospital Encounter [facility] Operating Room [facility] ([facility]) [address] [place] [address] Sissy Stovall MD Ductal carcinoma in situ (DCIS) of right breast Discharge Disposition: Discharge to home or self care 12/08/2024 1:30 PM CDT Office Visit [facility] Surgery [address] [place] [address] [facility] 6th [place] [address] Sissy Stovall MD Ductal carcinoma in situ (DCIS) of right breast (Primary Dx) 12/08/2024 Telephone [facility] Surgery [address] [place] [address] [facility] 6th [place] [address] Abdirizak Darling CMA problem 12/05/2024 8:30 AM CDT Office Visit [facility] Surgery [address] [place] [address] [facility] 6th [place] [address] Sissy Stovall MD Ductal carcinoma in situ (DCIS) of right breast (Primary Dx) 11/27/2024 3:15 PM CDT Office Visit [facility] Surgery [facility] Floor [address] [place] [phone] Nicolette Hebert MD PhD Encounter for postoperative wound check (Primary Dx); History of bilateral mastectomy; Hx of lymph node excision 11/27/2024 2:00 PM CDT Office Visit [facility] Surgery [address] [place] [address] 6th [place] [address] Sissy Stovall MD Ductal carcinoma in situ (DCIS) of right breast (Primary Dx) 11/21/2024 2:30 PM CDT Office Visit [facility] Surgery [address] [place] [address] [place] [address] Danielle Matias NP Ductal carcinoma in situ (DCIS) of right breast (Primary Dx) 11/19/2024 Results Follow-Up [facility] Surgery [address] [place] [phone] Nicolette Hebert MD PhD Surgical pathology 11/14/2024 2:10 PM CDT Anesthesia Event [facility] Operating [facility] [address] [place] [address] Connie Plascencia MD Gangloff, Kerry Marie, NP 11/14/2024 1:20 PM CDT - 11/14/2024 6:20 PM CDT Surgery [facility] Operating Room [facility] [address] [place] [address] Nicolette Hebert MD PhD MASTECTOMY - SKIN SPARING 11/14/2024 10:54 AM CDT - 11/15/2024 11:45 AM CDT Hospital Encounter [facility] 1 [place] [address] CatesNicolette Curry MD PhD Aft, Richelle Nunn MD PhD 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 [address] [place] [address] Nicolette Hebert MD PhD 10/08/2024 Telephone [facility] Oncology [address] [place] [address] [place] [phone] Serenity Crowder CMA from Last 3 Months Immunizations Immunization Administration Dates Next Due H1N1 [...] Antibiotic Free, IM (FLUBLOK) 05/08/2024 Tdap 04/30/2022 Surgical History Surgery Date Site/Laterality Comments APPENDECTOMY 07/23/1985 - 07/22/1986 BREAST BIOPSY 07/01/2024 Right DCIS ([place]) CERVICAL FUSION 07/23/2016 - 07/22/2017 SECTION 07/23/1990 - 07/22/1991 CERVICAL DISCECTOMY 07/23/2014 - 07/22/2015 PARTIAL HYSTERECTOMY 07/23/2002 - 07/22/2003 Ovaries intact MASTECTOMY 11/14/2024 Bilateral tissue expanders placed COLONOSCOPY Last one was 2022 Medical History Medical History Date Comments Hypercholesterolemia High choles terol; Comments: SAB 06/12/2014 - Hx Other Medical C section; Comm ents: SAB 06/12/2014 - Breast cancer (HCC) 07/01/2024 DCIS ([place] ) Thyroid disease Hypertension Family History * Patient is adopted Medical History Relation Name Comments Breast cancer Neg Hx Social History Tobacco Use Types Packs/Day Years [...] on file Legal Sex Female 2:19 AM MANAGER SHOP Gender Identity Not on file Sexual Orientation Not on file 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 Not on file Not on file Not on file Obstetrics History Para Term AB IAB SAB Ectopic Multiple Livin g Live Births 1 1 1 Date Outcome GA Total Labor Labor/2nd/3rd Weight Sex Type Anes PTL Maureen A1 A5 Name Clin Term Last Filed Vital Signs Vital Sign Reading [...] 12/12/2024 9:25 AM CDT Plan of Treatment Health Maintenance Due Date Last Done Comments Colon Cancer Screening-Colonoscopy 1965 Depression Screening 1965 Hepatitis C Screening 1965 Hepatitis B Screening 1985 Regular Well Visit/Exam 18-64 1985 Lung Cancer Screening 2017 Zoster Vaccine (1 of 2) 2017 Breast Cancer Screening-Mammogram 05/30/2025 05/30/2024 DTaP/Tdap/Td Vaccine (2 - Td or Tdap) 04/30/2032 04/30/2022 Covid-19 Vaccine Completed 05/08/2024, , 05/30/2022, Additional history exists Influenza Vaccine Completed 05/08/2024, , 06/06/2022, Additional history exists Pneumococcal vaccine <65 Aged Out No longer eligible based on patient's age to complete this topic Medical Devices Implanted Type Area Manufacturer'S Representative Device Identifier Shelf Expiration Date Model / Serial / Lot [employer] Implant Breast Moderate Plus Profile Smooth Memorygel Boost 320cc Gel [id number] - [id number] - [id number] Implanted:Qty: 1 on 12/12/2024 by Sissy Stovall MD at [facility] Breast Left: Breast [employer] [id number] 08/21/2028 [id number] / [id number] / [employer] Implant Breast Moderate Plus Profile Smooth Memorygel Boost 320cc Gel [id number] - [id number] - [id number] Implanted:Qty: 1 on 12/12/2024 by Sissy Stovall MD at [facility] Breast Right: Breast [employer] [id number] 09/18/2028 [id number] / [id number] / [id number] [employer] Securmark 13cm Rigid End Bioabsorbable Net Top Photographic Technician Breast Latex Free Euvoi-Qofrz-0y-1 3 - [id number] Implanted:Qty: 1 on 07/01/2024 by Shawn Moncada MD at [facility] Right: Breast [employer] [id number] 02/26/2025 RK-EV RENARD-2S-1 3 / / [id number] Description:Right breast Kevin reotactic for microcals/ top hat placed Explanted Type Area Manufacturer'S Representative Device Identifier Shelf Expiration Date Model / Serial / Lot [employer] Implant Mammary Natrelle Te Smooth 015z-Fa-32-T With Fourte 019b-Dg-08-T - [id number] - [id number] Implanted:Qt y: 1 on 11/14/2024 by Sissy Stovall MD at [facility] Explanted:Qt y: 1 on 12/12/2024 by Sissy Stovall MD at [facility] Breast Left: Breast [employer] 12/07/2028 133S-FX- 11-T / [id number] / [employer] Implant Mammary Natrelle Te Smooth 090t-Re-94-T With Fourte 325i-Js-58-T - [id number] - [id number] Implanted:Qt y: 1 on 11/14/2024 by Sissy Stovall MD at [facility] Explanted:Qt y: 1 on 12/12/2024 by Sissy Stovall MD at [facility] Other - see comments Right: Breast [employer] [id number] 05/28/2027 133S-FX- 11-T / [id number] / Procedures Procedure Name Priority Date/Time Associated [...] Needs general, supine, 0.25%marcaine+epi, plastic tray, POCT EX-V-ONU-GLU-HCT,WB - ISTAT Routine 12/12/2024 9:54 AM CDT SURGICAL PATHOLOGY Routine 11/14/2024 3: 34 PM CDT Ductal carcinoma in situ of right breast UT AN PROCEDURE PLACEHOLDER Routine 11/14/2024 2:34 PM CDT UT AN ELECTIVE ENDOTRACHEAL AIRWAY Routine 11/14/2024 2:34 PM CDT GRAFT SKIN SPLIT THICKNESS 11/14/2024 2:13 PM CDT Ductal carcinoma in situ of right breast Special Needs Blue Dye, Sentimag, [employer], MagtraceBadran- general, supine, 0.25%marcaine+ epi, plastic tray, cortiva X2, INSERTION TISSUE LAND SURVEYING MANAGER - BREAST 11/14/2024 2:13 PM CDT Ductal [...] supine, 0.25%marcaine+ epi, plastic tray, cortiva X2, UT AN PROCEDURE PLACEHOLDER Routine 11/14/2024 1:54 PM CDT UT AN PROCEDURE PLACEHOLDER Routine 11/14/2024 1:53 PM CDT UT AN PROCEDURE PLACEHOLDER Routine 11/14/2024 1:52 PM CDT UT AN PROCEDURE PLACEHOLDER Routine 11/14/2024 1:50 PM CDT SCREENING MAMMOGRAM BILATERAL W JOAO Schedule Routine, Read Routine (OP Routine) 05/30/2024 9:53 AM MANAGER SHOP Screening mammogram, encounter for from Last 3 Months or Most Recently Relevant to Health Maintenance Results * (ABNORMAL) Tissue aerobic and anaerobic culture and gram stain Tissue Breast, left (12/12/2024 11:17 AM CDT) Direct Specimen Exam Stain: No polymorphonuclear leukocytes seen. Rare Gram Positive Cocci Report Final Report: Few Mixed microorganisms. Includes the following: Few Pseudomonas putida group (.) [facility] Organism PSEUDOMONAS PUTIDA GROUP [facility] Organism MIXED MICROORGANISMS. [facility] Tissue (Breast, left) 12/12/2024 11:17 AM CDT 12/12/2024 12:59 PM CDT Narrative [facility] - 12/20/2024 2:39 PM CDT Left Breast Skin Testing performed by [facility] Microbiology Laboratory ([phone]) Specimens submitted from normally sterile body sites [...] (SUNDAR) INTERPRETATION Susceptible Pseudomonas putida group Meropenem (SUNDRA) (SUNDAR) INTERPRETATION Susceptible Pseudomonas putida group Trimethoprim with Sulfamethoxazole (SUNDAR) (SUNDAR) INTERPRETATION Resistant Pseudomonas putida group Ceftazidime (SUNDAR) (SUNDAR) INTERPRETATION Susceptible Sissy Stovall MD LAB MICROBIOLOGY - GENERAL ORDERABLES Final Result [facility] Department [place] [address] * (ABNORMAL) Tissue aerobic and anaerobic culture [...] the following: Few Pseudomonas putida group (.) [facility] Organism PSEUDOMONAS PUTIDA GROUP [facility] Organism MIXED MICROORGANISMS. [facility] Tissue (Breast, right) 12/12/2024 11:14 AM CDT 12/12/2024 12:56 PM CDT Narrative [facility] - 12/20/2024 2:38 PM CDT Right Breast Skin Testing performed by [facility] Microbiology Laboratory ([phone]) Specimens submitted from normally sterile body sites [...] LAB MICROBIOLOGY - GENERAL ORDERABLES Final Result [facility] Department [place] [address] * Airway (12/12/2024 10:12 AM CDT) Narrative [...] ANESTHESIA ORDERABLES Fi nal Result * POCT WM-O-PIZ-GLU-HCT, WB - ISTAT (12/12/2024 9:54 AM CDT) Na POC 137 135 - 145 mmol/L K POC 4.2 3.3 - 4.9 mmol/L [facility] Comment: Interpretive Data This method is not able to assess for hemolysis, which may falsely increase potassium concentrations. If further testing is needed to evaluate this result, consider in-laboratory plasma potassium. Current Interpretive Data was last revised on 2022. Glucose POC i-STAT 83 70 - 199 mg/dL [facility] Hct, POC 41.0 35.6 - 45.5 % [facility] Blood 12/12/2024 9:54 AM CDT 12/12/2024 9:54 AM CDT us Sissy Stovall MD LAB POCT ORDERAB LES - DEVICE Final Result [facility] Department [place] [address] * Surgical pathology (11/14/2024 3:34 PM CDT) Tissue (Breast, simple mastectomy) 11/14/2024 3:34 PM CDT Tissue specimen (specimen) (Lymph node, sentinel breast) 11/14/2024 3:52 PM CDT Tissue specimen (specimen) (Lymph node, sentinel breast) 11/14/2024 3:53 PM CDT Tissue specimen (specimen) (Breast, simple mastectomy) 11/14/2024 5:23 PM CDT Narrative PATHOLOGY [facility] - 11/18/2024 9:23 AM CDT EPIC results best viewed via link to PDF [facility] [place] [address] Note to Patients: This report may contain [...] Gender: F : 1965 (Age: 59) Address: [address] [place], [place] [address] Hospital #: [id number] Taken:11/14/2024 Received:11/14/2024 Reported: 11/18/2024 Patient Type: [facility] OP In Bed Service: Surgery Location: [place] [address] Physician(s): Bakari Messina NP Diagnosis: A. Breast, [...] - No evidence of atypia or malignancy [facility]/11/17/2024 16:56 By this signature, I attest that [...] inner quadrant D9 Nipple suture area D10 Division Sales Manager section of skin (inferior fragment) Jar: 4 [...] and non-sentinel) Exact number: 3 Number of [place] Nodes Examined Exact number: 3 Pathologic stage classification (pTNM, AJCC 8th Edition): TNM descriptors: Not applicable Primary tumor (pT): pTis (DCIS): Ductal carcinoma in situ Regional lymph nodes (pN): Modifier: (sn): Only sentinel node(s) evaluated. pN Category: pN0: No regional lymph node metastasis identified pM Category: Distant Site(s) Involved, if applicable: Not applicable Breast Biomarker Testing performed on Previous Case: [id number] Estrogen Receptor (ER): Positive Reva score 8/8 [...] Surgical Pathology and Flow Cytometry Departments at [facility] as part of an ongoing clinical quality rn program and in compliance with federally mandated [...] Surgical Pathology and Flow Cytometry Departments of [facility]. It has not been cleared or approved by the U. S. Food and Drug Administration. IMAGES AND SCANNED DOCUMENTS, IF INCLUDED, ONLY VIEWABLE IN PDF VERSION OF REPORT us Nicolette Hebert MD PhD LAB PATHO LOGY ORDERABLES Final Result PATHOLOGY [facility] 3rd Floor [place], [place] [phone] * UT AN ELECTIVE ENDOTRACHEAL AIRWAY, UT AN PROCEDURE PLACEHOLDER (11/14/2024 2:34 PM CDT) Camila Grayson CRNA - 11/14/2024 2:34 PM CDT Camila Ch CRNA 11/14/2024 2:34 PM Airway Patient location: OR Urgency: elective Indications for airway management: anesthesia Difficult airway: no Staff: Placed by: GALO: Camila Ch CRNA Emergent airway documentation: Risks [...] comments: Intubation performed atraumatically. Preop dentition unchanged. Connie Plascencia MD ANESTHESIA ORDERABLES Fin al Result * UT AN PROCEDURE PLACEHOLDER (11/14/2024 1:54 PM CDT) [...] MD ANESTHESIA ORDERABLES Fin al Result * UT AN PROCEDURE PLACEHOLDER (11/14/2024 1:53 PM CDT) [...] MD ANESTHESIA ORDERABLES Fin al Result * UT AN PROCEDURE PLACEHOLDER (11/14/2024 1:52 PM CDT) Narrative Matthew Blair MD - 11/14/2024 1:52 PM CDT Matthew [...] MD ANESTHESIA ORDERABLES Fin al Result * UT AN PROCEDURE PLACEHOLDER (11/14/2024 1:50 PM CDT) [...] Mammogram Bilateral W Joao (05/30/2024 9:53 AM MANAGER SHOP) Anatomical Region Laterality Modality Breast Bilateral Mammography Impressions 06/02/2024 9:17 AM MANAGER SHOP BI-RADS ATLAS category (overall): 0 - Incomplete: [...] will be contacted. Narrative 06/02/2024 9:17 AM MANAGER SHOP Screening Mammogram Bilateral W Joao: 05/30/24 The [...] finding in the left breast on mammogram. us Jose Foote MD IMG MAMMO PROCEDURES Final Result from Last 3 Months or Most Recently Relevant to Health Maintenance Insurance [employer] [place] Advance Directives For more information, please contact: [phone] Documents on File Type Date Recorded Patient Division Sales Manager Expl anation ADVANCE DIRECTIVE 11/20/2024 6:44 AM LIVING WILL ADVANCE DIRECTIVE 11/20/2024 6:44 AM POWER OF ONLINE MERCHANDISING MANAGER-MEDICAL ADVANCE DIRECTIVE 11/14/2024 12:06 PM Phyllis ng Will ADVANCE DIRECTIVE 11/14/2024 12:06 PM Benny r of Manager Finance-Medical * Full Code (Latest Code Status on File) Date Activated Date Inactivated Comments 11/14/2024 9:26 PM 11/15/2024 6:09 PM Care Teams Group Leader Semiconductor Processing Relationship Specialty Start Date End Date Rex Parra NP [address] [facility] [address] [place] [address] PCP - General Nurse Practitioner 05/30/24 Jose Foote MD [address] [place] [address] Referring Physician Obstetrics and Gynecology 05/13/24 Shawn Moncada MD [address] [facility] [address] [place] [address] Consulting Physician General Surgery 07/09/24 Irma Covarrubias MD [address] [facility] [address] [place], [place] [id number] Radiation Oncologist Radiation Oncology 07/09/24 Ethan Isidro DO [address] [place] [address] Medical Oncologist/Hematologis t Hematology and Oncology 07/21/24
--- OUTSIDE RECORDS SUMMARY | 2025-01-02 19:41 | XMS_ITS ---
Author Organization [facility] [place] ([address]) Address [address] [place] [address] Care Team Providers Care Cloth Boil Off Machine Operator Name Role Phone Stefano Andersen Primary Care Provider UnavailFox Trejo Unavailable [phone] Gerard Vale Unavailable Unavailable ZZ-Migration, Provider Unavailable Unavailab le REASON FOR VISIT [facility] Encounter Medications Medication SIG (Take, Route, Frequency, Duration) Notes Start Date End Date Status Pepcid 20 MG 1 tab(s) orally 2 times a day for 30 days 09/24/2023 Active Cetirizine HCl 10 MG 1 tab(s) orally BID for 30 days 09/24/2023 Active Mounjaro 15 MG/0.5 ML DIRECTED SUBCUTANEOUSLY ONCE A WEEK *Please review and pick correct strength-formula [facility]ion from [facility] options. If intended option is not shown, discontinue and re-order from Quick Search* Active Montelukast Sodium 10 MG 1 tab(s) orally once a day for 30 day(s) 09/24/2023 Active ZyrTEC Allergy 10 MG 1 tab(s) orally Qday Not-Erick ing Levothyroxine Sodium 88 MCG 1 tab(s) orally once a day Active Valsartan 320 MG 1 tab(s) orally once a day Active Pravastatin Sodium 80 MG 1 tab(s) orally once a day Active Calcium Acetate 667 MG 3 tab(s) orally 3 times a day Active Montelukast Sodium 10 MG 1 tab(s) orally once a day for 30 day(s) Active Fish Oil 1000 MG 1 cap(s) orally 3 times a day (with meals) Active Social History Sex Assigned At : Social History Observation Description Sex Assigned At Female Encounters Encounter Location Date Provider Diagnosis [facility] - [address] [address] 01/05/2024 Provider LARRY-Ilene Idiopathic urticaria L50.1 Assessments Encounter Date Diagnosis (ICD Code) Assessment Notes Treatment Notes Treatment Clinical Notes Section Notes 01/05/2024 Idiopathic urticaria (ICD-10 - L50.1) Plan Of Treatment Medication Medication Name Sig Start Date Stop Date Notes Pepcid 20 MG 1 tab(s) orally 2 ti mes a day for 30 days 09/24/2023 Cetirizine HCl 10 MG 1 tab(s) orally BID for 30 days 09/23 Montelukast Sodium 10 MG 1 tab(s) orally once a day for 30 day(s) 09/24/2023 Montelukast Sodium 10 MG 1 tab(s) orally once a day for 30 day(s) Next Appt Details Provider Name:Jailyn sterling, 01/05/2025 07:30:00 AM, [address] [facility], [address], [place], [address], Progress Notes * Maye RILEY ADOB:1964 (59 yo F)Acc No.[id number]:01/05/2024 Patient: Maye ATKINSON Provider: Joaquina Odom :1965 A ge:58 Y S ex:Female Date:01/05/2024 Address:[address] [place], [place] [phone] Pcp:Stefano Andersen Subjective: * Chief Complaints: * 1 . Multum To Medispan Conversion Encounter. * Medical History: * Medications: T aking Fish Oil 1000 MG Capsule 1 cap(s) orally 3 times a day (with meals) , Taking Calcium Acetate 667 MG Tablet 3 tab(s) orally 3 times a day , Taking Pravastatin Sodium 80 MG Tablet 1 tab(s) orally once a day , Taking Valsartan 320 MG Tablet 1 tab(s) orally once a day , Taking Levothyroxine Sodium 88 MCG Tablet 1 tab(s) orally once a day , Taking Mounjaro 15 MG/0.5 ML SOLUTION DIRECTED SUBCUTANEOUSLY ONCE A WEEK , Notes to Pharmacist: *Please review and pick correct strength-formulation from Medispan options. If intended option is not shown, discontinue and re-order from Quick Search*, Not-Taking/PRN ZyrTEC Allergy 10 MG Tablet 1 tab(s) orally Qday Objective: * Vitals: Assessment: * Assessment: 1. I diopathic urticaria - L50.1 Plan: * Treatment: * Billing Information: * Visit Code: * Procedure Codes: * Electronic signature of Mary JUAREZ-Migration on 01/02/2025 at 07:41 PM CDT Sign off status: Pending * Provider: Joaquina lopez Migration Date: 01/05/2024 Generated for Elmer leroy/Leidy/Williams on: 01/02/2025 07:41 PM CDT
[2025-01-02 20:19] VITALS: BP 124/89; PULSE 87; RESP 16; O2SAT 100
[2025-01-02] MEDS: LIDOCAINE 5% PATCH 1 PATCH TRANSDERM (21:36)
== END 2025-01-02 21:43 | disposition home or self-care (01) ==
PROVIDERS: Emergency Provider Physician Assistant; PCP Nurse Practitioner
DX: S20.211A Contusion of right front wall of thorax, initial encounter (principal); S50.11XA Contusion of right forearm, initial encounter; S50.02XA Contusion of left elbow, initial encounter; M87.9 Osteonecrosis, unspecified; E03.9 Hypothyroidism, unspecified; E11.9 Type 2 diabetes mellitus without complications; F17.210 Nicotine dependence, cigarettes, uncomplicated; Z98.1 Arthrodesis status; Z86.16 Personal history of COVID-19; Z85.3 Personal history of malignant neoplasm of breast; Z90.710 Acquired absence of both cervix and uterus; M48.02 Spinal stenosis, cervical region; Z79.85 Long-term (current) use of injectable non-insulin antidiabetic drugs; Z79.899 Other long term (current) drug therapy; V49.40XA Driver injured in collision with unspecified motor vehicles in traffic accident, initial encounter
CPT/HCPCS: 36415; 70450; 71260; 72125; 73080; 73090; 74177; 80053; 85025; 85610; 85730; 96374; 96375; 99284; A9270; J2270; J2405; Q9967